=== PATIENT | male | born 1950 | race Caucasian/White ===

== ENCOUNTER 2020-08-09 21:15 | Inpatient (IN) ==
[2020-08-09] MEDS ORDERED: SODIUM CHLORIDE 0.9% 1000ML 1,000 ML IV ONE (21:39)
--- NOTE | 2020-08-09 21:44 | Emergency Department Note ---
Impression & Plan Acute GI bleeding, Melena, Elevated BUN, Anemia ED Provider Note NAME: CORTES CHRISTOPHER AGE: 69 SEX: M : 1950 ARRIVES VIA: Walk-In INFORMANT: Patient ED PROVIDER(S): Ba Aguirre DO CHIEF COMPLAINT: Dark tarry stool HPI: Patient is a 69-year-old male who presents the ER for dark tarry stool. He had 3 bowel movements over the past 3 hours which he notes are dark and tarry. Last one had dark blood as well as bright red blood. He denies any belly pain. No blood thinners. No headache or neck pain. No dizziness or lightheadedness. No chest pain or shortness of breath. No other exacerbating or remitting factors. Previous history of a bowel resection and appendectomy. ROS: See above HPI for pertinent positives & negatives. A total of 10 systems reviewed and were otherwise negative. PAST MEDICAL HISTORY:See Below PAST SURGICAL HISTORY:See Below FAMILY HISTORY:See Below SOCIAL HISTORY:See Below HOME MEDICATIONS:See Below ALLERGIES:See Below VITALS:See Below PHYSICAL EXAMINATION: GENERAL: Sitting up in bed, alert, well appearing, well nourished, no distress, non-toxic EYE EXAM: normal conjunctiva. OROPHARYNX: no exudate, no erythema, lips, buccal mucosa, and tongue normal and mucous membranes are moist NECK: supple, no nuchal rigidity, no adenopathy, non-tender LUNGS: Clear to auscultation. Normal chest wall mechanics HEART: no murmurs, S1 normal and S2 normal ABDOMEN: abdomen soft, non-tender, normo-active bowel sounds, no masses, no rebound or guarding. BACK: Back is symmetrical on inspection and there is no deformity, no midline tenderness, no CVA tenderness. RECTAL: Heme positive melanotic stool UPPER EXTREMITIES: upper extremities are grossly normal. LOWER EXTREMITIES: No pitting edema. NEURO EXAM: Normal sensorium, cranial nerves II-XII grossly intact, normal speech, no gross weakness of arms, no gross weakness of legs. MEDICAL DECISION MAKING: Patient is a 69-year-old male who presents the ER for dark tarry stools for the past 3 to 5 hours. He has had 3-4 episodes. Last one had some bright red blood in it as well. Denies any blood thinners. Previous colonoscopy was unremar kable. Rectal with melena. Labs show a mild leukocytosis 11,000. Hemoglobin dropped from 15-12.7. INR unremarkable. BMP with LFTs bilirubin was unremarkable. Troponin was negative. Lipase normal. Patient was typed and screened. He has absolutely no abdominal pain. He was updated bedside. Discussed with the hospitalist for further evaluation. Triage Nursing notes reviewed. Prior medical records reviewed Vital Signs: reviewed and remarkable for tachycardic and hypertensive Differential diagnosis: Differential diagnosis includes etiologies such as diverticulitis, diverticulosis, AVM, coagulopathy, colitis, inflammatory bowel disease, malignancy, Mariam-Decker tear, esophagitis, peptic ulcer disease, variceal bleed, gastritis, epistaxis, fissure, hemorrhoids, as well as others were entertained. ER treatment provided: See below Diagnostics interpreted by me: ECG: Sinus rhythm rate 88 Left axis Right bundle branch block T WI V1 through V3 No PVCs Cardiac Monitoring: An order was placed for continuous cardiac monitoring. The monitor shows a rate of 89 with sinus rhythm. Laboratory studies: As stated above and show below. Imaging studies: See below Consultation(s): Discussed with Dr. Giovanni Pedro ED COURSE: Procedures: none Critical Care: None Past Med/Surg History Medical History (Updated 08/10/20 @ 00:22 by Ba Aguirre DO) Hyperlipidemia Hypertension Social History Smoking Status: Former smoker Tobacco Type: Cigarettes Preferred Language: Hungarian Feels Safe at Home: Yes Allergies Allergies Allergy/AdvReac Type Severity Reaction Status Date / Time amoxicillin AdvReac Severe blisters Unverified 08/09/20 22:49 Home Meds Home Medications Medication Instructions Recorded Confirmed atorvastatin 20 mg PO QAM 04/18/20 08/09/20 cetirizine [Zyrtec] 10 mg PO QAM PRN 04/18/20 08/09/20 metoprolol succinate 25 mg PO QAM 04/18/20 08/09/20 Results & Data (ED) Vital Signs Vital Signs - 24 hr 08/09/20 21:17 08/09/20 22:22 08/09/20 22:30 Temperature 36.7 C Temperature Source Oral Pulse Rate - Lying Pulse Rate - Sitting Pulse Rate - Standing Pulse Rate 106 H 91 H 94 H Pulse Rate from SpO2 Sensor 93 H Pulse Rhythm Regular Pulse Strength Normal Respiratory Rate 18 14 16 Respiratory Effort / Characteristics Non-Labored Spontaneous Respiratory Depth Normal Respiratory Pattern Regular Blood Pressure - Lying Blood Pressure - Sitting Blood Pressure- Standing Blood Pressure 177/96 H 148/78 H Blood Pressure Mean 123 90 Blood Pressure Position Sitting Pulse Oximetry 98 97 98 Oxygen Delivery Method Room Air Room Air Room Air Sepsis Recent Fever Within 48 Hours No Sepsis New/Unexplained Change in Mental Status N/A Sepsis Action Taken by Nursing No Action Required 08/09/20 23:00 08/09/20 23:27 08/09/20 23:30 Temperature Temperature Source Pulse Rate - Lying 92 H Pulse Rate - Sitting 90 Pulse Rate - Standing 98 H Pulse Rate 80 81 Pulse Rate from SpO2 Sensor 80 Pulse Rhythm Pulse Strength Respiratory Rate 13 18 Respiratory Effort / Characteristics Respiratory Depth Respiratory Pattern Blood Pressure - Lying 163/84 H Blood Pressure - Sitting 171/86 H Blood Pressure- Standing 148/85 H Blood Pressure 149/83 H 148/85 H Blood Pressure Mean 108 108 Blood Pressure Position Pulse Oximetry 96 97 Oxygen Delivery Method Room Air Room Air Sepsis Recent Fever Within 48 Hours Sepsis New/Unexplained Change in Mental Status Sepsis Action Taken by Nursing 08/10/20 00:00 Temperature Temperature Source Pulse Rate - Lying Pulse Rate - Sitting Pulse Rate - Standing Pulse Rate 86 Pulse Rate from SpO2 Sensor 87 Pulse Rhythm Pulse Strength Respiratory Rate 15 Respiratory Effort / Characteristics Respiratory Depth Respiratory Pattern Blood Pressure - Lying Blood Pressure - Sitting Blood Pressure- Standing Blood Pressure 141/75 H Blood Pressure Mean 85 Blood Pressure Position Pulse Oximetry 96 Oxygen Delivery Method Room Air Sepsis Recent Fever Within 48 Hours Sepsis New/Unexplained Change in Mental Status Sepsis Action Taken by Nursing Laboratory Data Result diagrams: 08/09/20 22:01 08/09/20 22:01 Lab Results 08/09/20 08/09/20 08/09/20 Range/Units 22:01 22:01 22:01 WBC 11.54 H (4.8-10.8) K/uL RBC 3.97 L (4.7-6.1) M/uL Hgb 12.7 L (14.0-18.0) g/dL Hct 38.0 L (42-52) % MCV 95.7 (80-100) fL MCH 32.0 (25-34) pg MCHC 33.4 (32-36) g/dL RDW Std Deviation 44.0 (36.4-46.3) fL RDW Coeff of Melvin 12.7 (11.5-14.5) % Plt Count 196 (130-400) K/uL MPV 9.4 (7.4-10.4) fL Immature Gran % (Auto) 0.3 % Neut % (Auto) 74.6 % Lymph % (Auto) 16.0 % [place] % (Auto) 8.0 % Eos % (Auto) 0.8 % Baso % (Auto) 0.3 % Neut # (Auto) 8.62 H (1.4-6.5) K/uL Lymph # (Auto) 1.85 (1.2-3.4) K/uL [place] # (Auto) 0.92 H (0.11-0.59) K/uL Eos # (Auto) 0.09 (0-0.5) K/uL Baso # (Auto) 0.03 (0-0.2) K/uL Immature Gran # (Auto) 0.03 H (0.00-0.02) K/uL PT 10.8 (9.0-12.0) Seconds INR 1.0 (0.9-1.1) APTT 25.1 (21.0-31.0) Seconds PTT Ratio 0.9 Sodium (136-145) mmol/L Potassium (3.5-5.1) mmol/L Chloride (98-107) mmol/L Carbon Dioxide (21-32) mmol/L Anion Gap (3-11) BUN (7-18) mg/dl Creatinine (0.6-1.4) mg/dl Est Cr Clr Drug Dosing ml/min Est GFR ( Amer) Est GFR (Non-Af Amer) BUN/Creatinine Ratio (10-20) Glucose (70-99) mg/dl Calcium (8.5-10.1) mg/dl Magnesium (1.8-2.4) mg/dl Total Bilirubin (0.2-1) mg/dl AST (15-37) U/L ALT (12-78) U/L Alkaline Phosphatase (45-117) U/L Troponin I (0-0.045) ng/ml Total Protein (6.4-8.2) gm/dl Albumin (3.4-5.0) gm/dl Globulin (2.5-4.0) gm/dl Albumin/Globulin Ratio (0.9-2) Lipase (73-393) U/L Blood Type O Positive Antibody Screen NEGATIVE 08/09/20 Range/Units 22:01 WBC (4.8-10.8) K/uL RBC (4.7-6.1) M/uL Hgb (14.0-18.0) g/dL Hct (42-52) % MCV (80-100) fL MCH (25-34) pg MCHC (32-36) g/dL RDW Std Deviation (36.4-46.3) fL RDW Coeff of Melvin (11.5-14.5) % Plt Count (130-400) K/uL MPV (7.4-10.4) fL Immature Gran % (Auto) % Neut % (Auto) % Lymph % (Auto) % [place] % (Auto) % Eos % (Auto) % Baso % (Auto) % Neut # (Auto) (1.4-6.5) K/uL Lymph # (Auto) (1.2-3.4) K/uL [place] # (Auto) (0.11-0.59) K/uL Eos # (Auto) (0-0.5) K/uL Baso # (Auto) (0-0.2) K/uL Immature Gran # (Auto) (0.00-0.02) K/uL PT (9.0-12.0) Seconds INR (0.9-1.1) APTT (21.0-31.0) Seconds PTT Ratio Sodium 136 (136-145) mmol/L Potassium 4.6 (3.5-5.1) mmol/L Chloride 102 (98-107) mmol/L Carbon Dioxide 29 (21-32) mmol/L Anion Gap 6.0 (3-11) BUN 26 H (7-18) mg/dl Creatinine 0.89 (0.6-1.4) mg/dl Est Cr Clr Drug Dosing 77.2 ml/min Est GFR ( Amer) 100.4 Est GFR (Non-Af Amer) 86.6 BUN/Creatinine Ratio 29.0 H (10-20) Glucose 114 H (70-99) mg/dl Calcium 8.3 L (8.5-10.1) mg/dl Magnesium 1.9 (1.8-2.4) mg/dl Total Bilirubin 0.6 (0.2-1) mg/dl AST 22 (15-37) U/L ALT 24 (12-78) U/L Alkaline Phosphatase 71 (45-117) U/L Troponin I < 0.015 (0-0.045) ng/ml Total Protein 6.3 L (6.4-8.2) gm/dl Albumin 3.4 (3.4-5.0) gm/dl Globulin 2.9 (2.5-4.0) gm/dl Albumin/Globulin Ratio 1.2 (0.9-2) Lipase 139 (73-393) U/L Blood Type Antibody Screen Administered Medications Pantoprazole Sodium 40 mg/ (Dextrose) 100 mls @ 20 mls/hr IV Q5H ANALISA Stop: 09/08/20 23:14 Last Admin: 08/09/20 23:40 Dose: 8 mg/hr, 20 mls/hr Documented by: [id number] Multivitamins 10 ml/ Thiamine HCl 100 mg/ Folic Acid 1 mg/Sodium Chloride 1,011.2 mls @ 60 mls/hr IV .[id number] ONE Stop: 08/10/20 16:24 Last Admin: 08/10/20 00:07 Dose: 60 mls/hr Documented by: [id number] Discontinued Medications Sodium Chloride (Nss 1000ml) 1,000 mls @ 999 mls/hr IV .[id number] ONE Stop: 08/09/20 22:39 Last Infusion: 08/09/20 23:24 Dose: 0 mls/hr Documented by: [id number] Admin: 08/09/20 22:28 Dose: 999 mls/hr Documented by: [id number] Pantoprazole Sodium 80 mg/ (Dextrose) 120 mls @ 400 mls/hr IV NOW ONE Stop: 08/09/20 23:17 Last Infusion: 08/09/20 23:40 Dose: 0 mls/hr Documented by: [id number] Admin: 08/09/20 23:23 Dose: 400 mls/hr Documented by: [id number] Calcium Gluconate 1,000 mg/ (Sodium Chloride) 60 mls @ 240 mls/hr IV NOW STA Stop: 08/09/20 23:11 Last Infusion: 08/09/20 23:40 Dose: 0 mls/hr Documented by: [id number] Admin: 08/09/20 23:23 Dose: 240 mls/hr Documented by: [id number] Lorazepam (Ativan) 0.25 mg in 0.5 mls @ 0.5 mls/min IV NOW STA Stop: 08/09/20 23:33 Last Admin: 08/09/20 23:43 Dose: 0.5 mls/min Documented by: [id number] Discharge Plan Visit Data Chief Complaint: Rectal Bleed Stated Complaint: BLOOD IN STOOL ED Provider: Ba Aguirre Discharge Problem: Acute GI bleeding, Melena, Elevated BUN, Anemia Discharge Instructions Interventions: ED Discharge Assessment Last Done: 08/10/20 00:16 Forms Stand Alone Forms: [employer] Prescriptions Prescriptions: No Action atorvastatin 20 mg tablet 20 mg PO QAM RF: 0 cetirizine [Zyrtec] 10 mg Tablet 10 mg PO QAM PRN (Reason: allergies) RF: 0 metoprolol succinate 25 mg tablet extended release 24 hr 25 mg PO QAM RF: 0 Referrals Referrals: Yariel Rivera M.D. [Primary Care Provider] - Discharge Problem: Anemia Qualifiers: Anemia type: unspecified type Qualified Code(s): D64.9 - Anemia, unspecified
[2020-08-09 22:09] LABS: Basophils # (auto) 0.03 K/uL (0-0.2); Basophils % (auto) 0.3 %; Eosinophils # (auto) 0.09 K/uL (0-0.5); Eosinophils % (auto) 0.8 %; Hemoglobin 12.7 g/dL (14.0-18.0); Immature Granulocytes # (auto) 0.03 K/uL (0.00-0.02); Immature Granulocytes % (auto) 0.3 %; Lymphocytes # (auto) 1.85 K/uL (1.2-3.4); Mean Corpuscular Hgb Conc 33.4 g/dL (32-36); Mean Corpuscular Volume 95.7 fL (80-100); Mean Platelet Volume 9.4 fL (7.4-10.4); Monocytes # (auto) 0.92 K/uL (0.11-0.59); Neutrophils # (auto) 8.62 K/uL (1.4-6.5); Neutrophils % (auto) 74.6 %; Platelet Count 196 K/uL (130-400); RDW Coefficient of Variation 12.7 % (11.5-14.5); Red Blood Count 3.97 M/uL (4.7-6.1); White Blood Count 11.54 K/uL (4.8-10.8)
[2020-08-09 22:22] LABS: Partial Thromboplastin Ratio 0.9; Partial Thromboplastin Time 25.1 Seconds (21.0-31.0); Prothrombin Time 10.8 Seconds (9.0-12.0)
[2020-08-09 22:27] LABS: Alanine Aminotransferase 24 U/L (12-78); Albumin Level 3.4 gm/dl (3.4-5.0); Aspartate Aminotransferase 22 U/L (15-37); Blood Urea Nitrogen 26 mg/dl (7-18); Calcium 8.3 mg/dl (8.5-10.1); Carbon Dioxide 29 mmol/L (21-32); Chloride 102 mmol/L (98-107); Creatinine Clr Calc Pharmacy 77.2 ml/min; Est GFR (African American) 100.4; Est GFR (Non-African American) 86.6; Glucose 114 mg/dl (70-99); Lipase 139 U/L (73-393); Potassium 4.6 mmol/L (3.5-5.1); Sodium 136 mmol/L (136-145)
[2020-08-09 22:31] LABS: Albumin Globulin Ratio 1.2 (0.9-2); Alkaline Phosphatase 71 U/L (45-117); Bilirubin,Total 0.6 mg/dl (0.2-1); Globulin 2.9 gm/dl (2.5-4.0); Total Protein 6.3 gm/dl (6.4-8.2); Troponin I < 0.015 ng/ml (0-0.045)
[2020-08-09] MEDS ORDERED: PANTOPRAZOLE BOLUS/DRIP 1 EA IV STA (22:53)
[2020-08-09] MEDS ORDERED: CALCIUM GLUCONATE 10% 1,000 MG in SODIUM CHLORIDE 0.9% 50 ML IV STA (22:57)
[2020-08-09] MEDS ORDERED: PANTOprazole 80 MG in DEXTROSE 5% 100 ML IV ONE (23:00)
[2020-08-09 23:06] LABS: Magnesium 1.9 mg/dl (1.8-2.4)
[2020-08-09] MEDS ORDERED: LORazepam 0.25 MG/0.5 ML VIAL IV STA (23:32)
[2020-08-09] MEDS ORDERED: MULTI-VITAMIN INFUSION 10 ML, THIAMINE HCL 100 MG, FOLIC ACID 1 MG in SODIUM CHLORIDE 0... IV ONE (23:33)
--- NOTE | 2020-08-09 23:35 | History & Physical Report ---
Date of Service August 09, 2020 Assessment & Plan (1) UGIB (upper gastrointestinal bleed): Some degree of hemodynamic instability with positive orthostatic vitals at the ER. ? Alcoholic gastritis (hx at risk alcohol consumption, possible alcohol abuse) hypertension, BP slightly elevated hyperlipidemia on statin Rx Hyperglycemia rule out DM past tobacco abuse Medical telemetry IV PPI GI consult RE U GIB Serial H&H, transfuse PRBC if hemoglobin less than 7 and or for symptomatic anemia AWSS/DT precautions Check hemoglobin A1c DVT prophylaxis. SCDs RE GI bleed Full code Text document was generated using [employer] voice recognition software. It may contain grammatical or spelling errors. Kindly contact undersigned for clarification of any documentation item in question. History of Present Illness Chief Complaint: Dark tarry stools Primary Care Provider: Yariel Rivera History obtained from patient, family, and records. Medical history significant for hypertension, hyperlipidemia, anxiety/mood disorder, past tobacco abuse, daily alcohol intake. One day history of diarrhea, dark tarry stools with with some bright red blood. Minimal achy right-sided abdominal pain without emesis. No fever, no chills. No recent NSAID intake. No unusual weight loss. No fever, no chills. Antibiotic/steroid course for ear infection a few months back. Almost daily alcohol intake (3-6 drinks, some days none as per patient account), patient denies abuse. No prior history of alcohol withdrawal. History of dark stools many decades ago related to swallowed blood from the throat as per patient account. Patient brought to ER by . 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 Allergies Allergy/AdvReac Type Severity Reaction Status Date / Time amoxicillin AdvReac Severe blisters Unverified 08/09/20 22:49 Home Medications Home Medications Medication Instructions Recorded Confirmed Type atorvastatin 20 mg PO QAM 04/18/20 08/09/20 History cetirizine [Zyrtec] 10 mg PO QAM PRN 04/18/20 08/09/20 History metoprolol succinate 25 mg PO QAM 04/18/20 08/09/20 History Past Med/Surg History Medical History (Updated 08/10/20 @ 08:42 by Aron Cuello DO) Hyperlipidemia Hypertension Social History Smoking Status: Former smoker Tobacco Type: Cigarettes Do You Dip or Chew Tobacco: No; Hx Alcohol Use: Yes Alcohol type: beer Hx Substance Use: No Preferred Language: Sami Beliefs That Will Affect Care: None Current Living Situation: Spouse Other Information That Helps Us Care for You: No Feels Safe at Home: Yes Safety Concerns: Feels Safe At This Time Assistive Devices: Glasses Review of Systems Review of Systems: As per HPI, all 10 systems reviewed, all other ROS negative Physical Exam Physical Exam: GENERAL: Comfortable, slightly anxious, pleasant, obese, tremulous, no respiratory distress SKIN: Pallor, warm HEENT: Pale palpebral conjunctivae, no ptosis, dry buccal mucosa NECK : Supple, short neck, no tenderness CHEST : CTA, no tenderness HEART : RRR, no obvious murmurs ABDOMEN: Some distention, no overt tenderness EXTREMITIES : No LE swelling/tenderness, no other conspicuous deformities noted NEUROLOGIC : Coherent, no facial asymmetry, tremulous, no other gross focality Results & Data Results & Data ([facility]) Vital Signs (Past 12 Hours) Vital Signs Temp Pulse Resp BP Pulse Ox 08/09/20 23:00 80 13 149/83 H 96 08/09/20 22:30 94 H 16 148/78 H 98 08/09/20 22:22 91 H 14 97 08/09/20 21:17 36.7 C 106 H 18 177/96 H 98 Laboratory Results Laboratory Results WBC 11.54 K/uL (4.8-10.8) H 08/09/20 22:01 RBC 3.97 M/uL (4.7-6.1) L 08/09/20 22:01 Hgb 12.7 g/dL (14.0-18.0) L 08/09/20 22:01 Hct 38.0 % (42-52) L 08/09/20 22:01 MCV 95.7 fL (80-100) 08/09/20 22:01 MCH 32.0 pg (25-34) 08/09/20 22:01 MCHC 33.4 g/dL (32-36) 08/09/20 22:01 RDW Std Deviation 44.0 fL (36.4-46.3) 08/09/20 22:01 RDW Coeff of Melvin 12.7 % (11.5-14.5) 08/09/20 22: Plt Count 196 K/uL (130-400) 08/09/20 22: MPV 9.4 fL (7.4-10.4) 08/09/20 22: Immature Gran % (Auto) 0.3 % 08/09/20 22: Neut % (Auto) 74.6 % 08/09/20 22: Lymph % (Auto) 16.0 % 08/09/20 22: [place] % (Auto) 8.0 % 08/09/20 22: Eos % (Auto) 0.8 % 08/09/20 22: Baso % (Auto) 0.3 % 08/09/20: Neut # (Auto) 8.62 K/uL (1.4-6.5) H 08/09/20 22: Lymph # (Auto) 1.85 K/uL (1.2-3.4) 08/09/20 22: [place] # (Auto) 0.92 K/uL (0.11-0.59) H 08/09/20 22:01 Eos # (Auto) 0.09 K/uL (0-0.5) 08/09/20 22: Baso # (Auto) 0.03 K/uL (0-0.2) 08/09/20 22: Immature Gran # (Auto) 0.03 K/uL (0.00-0.02) H 08/09/20 22: PT 10.8 Seconds (9.0-12.0) 08/09/20 22: INR 1.0 (0.9-1.1) 08/09/20 22: APTT 25.1 Seconds (21.0-31.0) 08/09/20 22: PTT Ratio 0.9 08/09/20 22: Sodium 136 mmol/L (136-145) 08/09/20 22: Potassium 4.6 mmol/L (3.5-5.1) 08/09/20 22: Chloride 102 mmol/L (98-107) 08/09/20 22: Carbon Dioxide 29 mmol/L (21-32) 08/09/20 22: Anion Gap 6.0 (3-11) 08/09/20 22: BUN 26 mg/dl (7-18) H 08/09/20 22: Creatinine 0.89 mg/dl (0.6-1.4) 08/09/20 22: Est Cr Clr Drug Dosing 77.2 ml/min 08/09/20 22: Est GFR ( Amer) 100.4 08/09/20 22: Est GFR (Non-Af Amer) 86.6 08/09/20 22: BUN/Creatinine Ratio 29.0 (10-20) H 08/09/20 22: Glucose 114 mg/dl (70-99) H 08/09/20 22: Calcium 8.3 mg/dl (8.5-10.1) L 08/09/20 22: Magnesium 1.9 mg/dl (1.8-2.4) 08/09/20 22: Total Bilirubin 0.6 mg/dl (0.2-1) 08/09/20 22: AST 22 U/L (15-37) 08/09/20 22: ALT 24 U/L (12-78) 08/09/20 22: Alkaline Phosphatase 71 U/L (45-117) 08/09/20 22: Troponin I < 0.015 ng/ml (0-0.045) 08/09/20 22: Total Protein 6.3 gm/dl (6.4-8.2) L 08/09/20 22: Albumin 3.4 gm/dl (3.4-5.0) 08/09/20 22: Globulin 2.9 gm/dl (2.5-4.0) 08/09/20 22: Albumin/Globulin Ratio 1.2 (0.9-2) 08/09/20 22: Lipase 139 U/L (73-393) 08/09/20 22: Diagnostic Findings CT abdomen pelvis initial read: Nonspecific colitis EKG as per my interpretation : Rate 90, NSR, normal axis, right bundle branch block
[2020-08-09] MEDS: PANTOprazole 40 MG in DEXTROSE 5% 100 ML IV SCH (23:40)
[2020-08-10] MEDS ORDERED: oxyCODONE HCL IR 5 MG TAB (IMMEDIATE RELEASE) PO PRN (01:01)
[2020-08-10] MEDS ORDERED: LORazepam 3 MG/6 ML VIAL IV PRN (01:01)
[2020-08-10] MEDS ORDERED: GABAPENTIN 600 MG TAB PO ONE (01:01)
[2020-08-10] MEDS ORDERED: MoRPHine SULFATE 2 MG/ML CARP IV PRN (01:01)
[2020-08-10] MEDS ORDERED: LORazepam 2 MG/4 ML VIAL IV PRN (01:01)
[2020-08-10] MEDS ORDERED: PROMETHAZINE HCL 12.5 MG in SODIUM CHLORIDE 0.9% 50 ML IV PRN (01:01)
[2020-08-10] MEDS ORDERED: ACETAMINOPHEN 325 MG TAB PO PRN (01:01)
[2020-08-10] MEDS ORDERED: ATIVAN IV ALCOHOL WITHDRAWL IV PRN (01:01)
[2020-08-10] MEDS ORDERED: CETIRIZINE HCL 10 MG TABLET PO PRN (01:01)
[2020-08-10] MEDS ORDERED: GABAPENTIN 1200MG ALCOHOL WITHDRAWAL LOAD PO STA (01:01)
[2020-08-10] MEDS ORDERED: LORazepam 1 MG/2 ML VIAL IV PRN (01:01)
[2020-08-10] MEDS ORDERED: METOPROLOL SUCC 25MG EXT REL TAB PO SCH ×2 (01:30→09:00)
[2020-08-10 02:03] LABS: Basophils # (auto) 0.02 K/uL (0-0.2); Basophils % (auto) 0.2 %; Eosinophils # (auto) 0.03 K/uL (0-0.5); Eosinophils % (auto) 0.3 %; Hematocrit (blood only) 32.2 % (42-52); Immature Granulocytes # (auto) 0.03 K/uL (0.00-0.02); Immature Granulocytes % (auto) 0.3 %; Lymphocytes # (auto) 1.74 K/uL (1.2-3.4); Lymphocytes % (auto) 15.2 %; Mean Corpuscular Hemoglobin 32.5 pg (25-34); Mean Corpuscular Hgb Conc 34.2 g/dL (32-36); Mean Corpuscular Volume 95.3 fL (80-100); Mean Platelet Volume 9.4 fL (7.4-10.4); Monocytes # (auto) 0.94 K/uL (0.11-0.59); Monocytes % (auto) 8.2 %; Neutrophils # (auto) 8.71 K/uL (1.4-6.5); Neutrophils % (auto) 75.8 %; Platelet Count 180 K/uL (130-400); RDW Coefficient of Variation 12.7 % (11.5-14.5); RDW Standard Deviation 43.8 fL (36.4-46.3); Red Blood Count 3.38 M/uL (4.7-6.1); White Blood Count 11.47 K/uL (4.8-10.8)
[2020-08-10 02:21] LABS: BUN Creatinine Ratio 32.1 (10-20); Calcium 7.8 mg/dl (8.5-10.1); Creatinine Clr Calc Pharmacy 94.3 ml/min; Est GFR (African American) 101.8; Est GFR (Non-African American) 87.9; Potassium 4.3 mmol/L (3.5-5.1)
[2020-08-10 02:59] LABS: Appearance Urine Clear (Clear); Bacteria Urine Automated Negative (Negative); Bilirubin Urine Negative (Negative); Blood Urine Negative (Negative); Color Urine Yellow; Epithelial Cell Urine Auto >30 /lpf (0-5); Glucose Urine UA Negative (Negative); Ketones Urine Negative (Negative); Leukocyte Esterase Urine Negative (Negative); Nitrite Urine Negative (Negative); RBC Urine Automated 0-4 /hpf (0-4); Urobilinogen Urine Negative (Negative); pH Urine 7.5 (4.5-7.5)
[2020-08-10 03:19] LABS: Protein Urine 1+ (Negative); Sulfosalicylic Acid Urine Positive (Negative)
[2020-08-10 03:20] LABS: Mucus Urine Present (None Prsent)
[2020-08-10] MEDS: SODIUM CHLORIDE 0.9% 1000ML 1,000 ML IV SCH ×2 (03:59→15:17)
[2020-08-10] MEDS: PANTOprazole 40 MG in DEXTROSE 5% 100 ML IV SCH ×4 (04:18→20:09)
[2020-08-10 06:01] LABS: Estimated Average Glucose 100 mg/dl; Hemoglobin A1C 5.1 % (4.5-5.6)
--- NOTE | 2020-08-10 07:41 | CT Scan Report ---
CT abd pelvis IV con only CLINICAL HISTORY: Right-sided abdominal pain COMPARISON STUDY: None. TECHNIQUE: The patient was scanned in a dynamic helical fashion during intravenous administration of 93 cc of Optiray 320 A dose lowering technique was utilized adhering to the principles of ALARA. CT DOSE: 913.20 mGycm FINDINGS: Lower chest: The heart is normal in size and configuration, without pericardial effusion. The lung ba ses and pleural spaces are clear. Liver: The contrast-enhanced liver is normal in size, contour, and attenuation. There is no intrahepa tic biliary ductal dilatation. The hepatic veins and portal veins are patent. Gallbladder: Unremarkable. Spleen: Normal in size and attenuation. Pancreas: Unremarkable. Adrenal glands: Unremarkable. Kidneys: There are nonobstructing lower pole left renal calculi measuring up to 6 mm in diameter. The re are bilateral renal hypodensities consistent with cortical cysts. There is no hydronephrosis. Bowel: There are no transition zones indicate bowel obstruction. There are scattered colonic air-flui d levels. By history the appendix is surgically absent. There is no evidence of acute diverticulitis. There is borderline gastric wall thickening, a finding which may be secondary to a nondistended stat e. Peritoneum: There is no intraperitoneal free air or abdominal ascites. Vasculature: The abdominal aorta is normal in course and caliber. Adenopathy: None. Pelvic viscera: There is mild bladder distention. There are a few tiny diverticula arising from the b ladder dome. Skeletal structures: No destructive osseous lesions are seen. IMPRESSION: 1. No evidence of bowel obstruction. No evidence of free air 2. Left-sided nephrolithiasis. No evidence of hydronephrosis 3. Mild bladder distention. Tiny diverticula arising from the bladder dome 4. Colonic fluid. This is a nonspecific finding which can be seen in diarrhea/enteritis. 5. Borderline gastric wall thickening, finding which may be secondary to a nondistended state ACT 112: Negative or not required by law. Electronically signed by: Mulugeta Velez M.D. 08/10/2020 7:40 AM
[2020-08-10 08:13] LABS: Hemoglobin 10.7 g/dL (14.0-18.0); Reticulocyte % 2.8 % (0.5-2.0); Reticulocytes # 0.09 10^6/uL (0.02-0.10)
[2020-08-10] MEDS: GABAPENTIN 600 MG TAB PO SCH ×3 (08:39→21:06)
[2020-08-10] MEDS: ATORVASTATIN 20 MG TAB PO SCH (08:39)
[2020-08-10] MEDS: METOPROLOL SUCC 25MG EXT REL TAB PO SCH (08:40)
--- NOTE | 2020-08-10 08:42 | Anesthesiology Consultation ---
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 Surgery Operation Date: 08/10/20 08:25 Proposed Procedures p Esophagogastroduodenoscopy - Kiko Ibrahim DO Height/Weight Height: 5 ft 9 in Weight: 102.5 kg Allergies Allergy/AdvReac Type Severity Reaction Status Date / Time amoxicillin AdvReac Severe blisters Unverified 08/09/20 22:49 Medications Home Medications Medication Instructions Recorded Confirmed Last Taken atorvastatin 20 mg PO QAM 04/18/20 08/09/20 08/09/20 09:00 cetirizine [Zyrtec] 10 mg PO QAM PRN 04/18/20 08/09/20 04/17/20 metoprolol succinate 25 mg PO QAM 04/18/20 08/09/20 08/09/20 09:00 Active Medications Generic Name Dose Route Start Last Admin Trade Name Freq PRN Reason Stop Dose Admin Atorvastatin Calcium 20 mg 08/10/20 09:00 08/10/20 08:39 Atorvastatin 20 Mg Tab PO 09/09/20 08:59 20 mg QAM ANALISA Administration Gabapentin 600 mg 08/10/20 08:00 08/10/20 08:39 Gabapentin 600 Mg Tab PO 08/10/20 14:01 600 mg Q6H ANALISA Administration Pantoprazole Sodium 40 mg/ 100 mls @ 20 mls/hr 08/09/20 23:15 08/10/20 08:37 Dextrose IV 09/08/20 23:14 8 mg/hr Q5H ANALISA 20 mls/hr Administration 8 MG/HR Sodium Chloride 1,000 mls @ 60 mls/hr 08/10/20 03:00 08/10/20 03:59 Nss 1000ml IV 09/09/20 02:59 60 mls/hr .[id number] ANALISA Administration Metoprolol Succinate 25 mg 08/10/20 09:00 08/10/20 08:40 Metoprolol Succ 25mg Ext Rel Tab PO 09/09/20 08:59 25 mg QAM ANALISA Administration Past Medical History Medical History (Updated 08/10/20 @ 08:42 by Aron Cuello DO) Hyperlipidemia Hypertension Social History Smoking Status: Former smoker tobacco type: cigarettes Do You Dip or Chew Tobacco: No Hx Alcohol Use: Yes Alcohol type: beer alcohol intake frequency: a few times a week Hx Substance Use: No substance use type: does not use Physical Exam Vital Signs Last Vital Signs Temp 97.7 F 08/10/20 08:01 Pulse 85 08/10/20 08:01 Resp 18 08/10/20 08:01 BP 142/86 H 08/10/20 08:01 Pulse Ox 97 08/10/20 08:01 Testing Laboratory Results 08/10/20 08:02 08/10/20 01:53 PT 10.8 Seconds (9.0-12.0) 08/09/20 22:01 INR 1.0 (0.9-1.1) 08/09/20 22:01 APTT 25.1 Seconds (21.0-31.0) 08/09/20 22:01 Hemoglobin A1c 5.1 % (4.5-5.6) 08/09/20 22:01 Urine Color Yellow 08/10/20 02:35 Urine Appearance Clear (Clear) 08/10/20 02:35 Urine pH 7.5 (4.5-7.5) 08/10/20 02:35 Ur Specific [place] 1.020 (1.000-1.030) 08/10/20 02:35 Urine Protein 1+ (Negative) H 08/10/20 02:35 Urine Glucose (UA) Negative (Negative) 08/10/20 02:35 Urine Ketones Negative (Negative) 08/10/20 02:35 Urine Nitrite Negative (Negative) 08/10/20 02:35 Ur Leukocyte Esterase Negative (Negative) 08/10/20 02:35 Urine WBC (Auto) 1-5 /hpf (0-5) 08/10/20 02:35 Urine RBC (Auto) 0-4 /hpf (0-4) 08/10/20 02:35 U Hyaline Cast (Auto) 5-10 /lpf (0-5) H 08/10/20 02:35 U Epithel Cells (Auto) >30 /lpf (0-5) H 08/10/20 02:35 Urine Bacteria (Auto) Negative (Negative) 08/10/20 02:35 Blood Type O Positive 08/09/20 22:01 Antibody Screen NEGATIVE 08/09/20 22:01 Electrocardiogram Date: 08/09/20 Normal sinus rhythm, rate 88 bpm RSR' or QR pattern in V1 suggests right ventricular conduction delay T wave abnormality, consider anterior ischemia Abnormal ECG When compared with ECG of 18-APR-2020 11:42, RSR' pattern in V1 is now Present
[2020-08-10 08:48] LABS: Ferritin 156.4 ng/ml (8-388)
--- NOTE | 2020-08-10 09:38 | Electrocardiogram Report ---
Test Reason : Blood Pressure : / mmHG Vent. Rate : 088 BPM Atrial Rate : 088 BPM P-R Int : 154 ms QRS Dur : 124 ms QT Int : 396 ms P-R-T Axes : 022 003 044 degrees QTc Int : 479 ms Poor data quality, interpretation may be adversely affected Normal sinus rhythm Right bundle branch block Abnormal ECG When compared with ECG of 18-APR-2020 11:42, Right bundle branch block is new Confirmed by Agustin Curry ([id number]) on 08/10/2020 9:38:21 AM Referred By: REFERRED SELF Confirmed By:Agustin Curry
--- NOTE | 2020-08-10 09:38 | Hospitalist Progress Note ---
Date of Service August 10, 2020 Assessment & Plan (1) UGIB (upper gastrointestinal bleed): UGIB 2/2 gastric ulcer, severe gastritis Some degree of hemodynamic instability with positive orthostatic vitals at the ER. ? Alcoholic gastritis (hx at risk alcohol consumption, possible alcohol abuse, pt denies use of NSAIDs) Medical telemetry IV PPI, cont. for 72 hrs total then PO PPI GI consult RE U GIB Now pt is s/p EGD (08/10) w/ Dr. Ibrahim Findings: Severe gastritis 1 ulcer along the greater curvature of the gastric body, visible vessel seen- This was treated with epinephrine injection and thermal therapy Recommendations Clear liquid diet Continue Protonix drip for another 48 hours (72 hours total) Upon discharge would recommend Protonix or equivalent at 40 mg twice daily for 6 weeks then 1 time daily thereafter repeat upper endoscopy in 3 months Patient should avoid use of nonsteroidals Serial H&H, transfuse PRBC if hemoglobin less than 7 and or for symptomatic anemia AWSS/DT precautions hypertension, BP slightly elevated hyperlipidemia on statin Rx Hyperglycemia rule out DM, check a1c past tobacco abuse DVT prophylaxis. SCDs RE GI bleed Full code Admission and Anticipated Discharge Date Admission Date: August 09, 2020 Subjective Pt is laying in bed, after his procedure with GI, He is drowsy but easily arousable and pt answers questions appropriately. Denies fever, chills, chest pain, shortness of breath. Denies abd. pain Review of Systems Review of Systems: All systems reviewed & are unremarkable except as noted in HPI & below Constitutional: no fever and no chills Respiratory: no cough and no dyspnea Cardiovascular: no chest pain and no palpitations Gastrointestinal: no abdominal pain, no nausea and no vomiting Physical Exam Physical Exam: GENERAL: Elderly obese male laying in bed, in no distress HEENT: NC/AT, EOMI, pale palpebral conjunctivae, no ptosis NECK : Supple, short neck, no tenderness CHEST : CTAB, no tenderness HEART : RRR, no obvious murmurs ABDOMEN: Some distention, no overt tenderness, soft, obese SKIN: warm, dry EXTREMITIES : No LE swelling/tenderness, moves extremities spontaneously NEUROLOGIC : Drowsy from anesthesia, however easily arousable, patient is alert and oriented x3, no facial asymmetry Results & Data Results & Data ([facility]) Vital Signs (Past 12 Hours) Vital Signs Temp Pulse Pulse Resp BP BP Pulse Ox 08/10/20 08:01 36.5 C 85 18 142/86 H 97 08/10/20 07:16 83 08/10/20 03:58 36.6 C 81 18 103/64 98 08/10/20 02:50 96 H 08/10/20 02:01 107/63 08/10/20 01:02 37.0 C 102 H 18 116/67 95 08/10/20 00:00 86 15 141/75 H 96 08/09/20 23:30 81 18 148/85 H 97 08/09/20 23:00 80 13 149/83 H 96 08/09/20 22:30 94 H 16 148/78 H 98 08/09/20 22:22 91 H 14 97
[2020-08-10 09:51] LABS: Folate (Folic Acid) > 24.00 ng/ml (>5.38); Vitamin B12 325 pg/ml (211-911)
[2020-08-10] MEDS ORDERED: ATROPINE SULFATE 0.1 MG/ML 10ML SYR IV PRN (11:57)
[2020-08-10] MEDS ORDERED: ePHEDrine sulfate 50 MG/ML AMP IV PRN (11:57)
--- NOTE | 2020-08-10 12:47 | Gastrointestinal Consultation ---
Date of Consultation August 10, 2020 Assessment & Plan (1) UGIB (upper gastrointestinal bleed): Patient presenting with signs and symptoms concerning for upper gastrointestinal bleed. Given the presentation and significant drop in his hemoglobin and hematocrit I think it would be prudent to proceed with urgent upper endoscopy. We have discussed the risks and benefits of the procedure to include bleeding, infection, perforation, aspiration and need for follow-up studies. Recommendations Upper endoscopy today Continue Protonix drip Discontinue use of all nonsteroidals History of Present Illness Reason for Consultation: Melena melena Attending Physician: Freddy Pineda MD History of Present Illness 69-year-old male presents for a history of melena ongoing for over 24 hours. He denies having any hematemesis or coffee-ground emesis. He denies having any epigastric pain nausea vomiting fevers chills or sweats. He does use nonsteroidals at home has never had an upper GI bleed before. His and he do note that they drink 3-5 drinks per day but to have no history of liver disease or peptic ulcer disease. Surgical history includes a prior appendectomy Allergies Allergy/AdvReac Type Severity Reaction Status Date / Time amoxicillin AdvReac Severe blisters Unverified 08/09/20 22:49 Home Medications Home Medications Medication Instructions Recorded Confirmed Type atorvastatin 20 mg PO QAM 04/18/20 08/09/20 History cetirizine [Zyrtec] 10 mg PO QAM PRN 04/18/20 08/09/20 History metoprolol succinate 25 mg PO QAM 04/18/20 08/09/20 History Patient History Medical History (Updated 08/10/20 @ 08:42 by Aron Cuello DO) Hyperlipidemia Hypertension Social History Smoking Status: Former smoker Tobacco Type: Cigarettes Do You Dip or Chew Tobacco: No; Hx Alcohol Use: Yes Alcohol type: beer Hx Substance Use: No Preferred Language: Slovenian Beliefs That Will Affect Care: None Current Living Situation: Spouse Other Information That Helps Us Care for You: No Feels Safe at Home: Yes Safety Concerns: Feels Safe At This Time Assistive Devices: Glasses Review of Systems Constitutional: no sweats and no malaise Eyes: no diplopia Ear, Nose, Mouth, Throat: no ear pain Respiratory: no cough and no change in sputum Cardiovascular: no chest pain and no chest pain with activity Gastrointestinal: + melena Genitourinary: no urinary frequency Musculoskeletal: no radicular pain Neurologic: no falls Psychiatric: no hopelessness Endocrine: no polydipsia Physical Exam Constitutional: well developed and well nourished; not ill appearing Neck: trachea midline, no thyromegaly Respiratory: normal respiratory effort, lungs clear to auscultation Cardiovascular: Rate/Rhythm: regular rate Heart Sounds: + murmur Gastrointestinal (Abdomen): Inspection/Auscultation: abdomen normal to inspection; abdomen not distended and no abdominal edema Skin: no rashes, warm and dry normal turgor Results & Data ([facility]) Vital Signs (Past 12 Hours) Vital Signs Temp Pulse Pulse Resp BP Pulse Ox 08/10/20 11:31 36.7 C 84 20 121/76 98 08/10/20 08:01 36.5 C 85 18 142/86 H 97 08/10/20 07:16 83 08/10/20 03:58 36.6 C 81 18 103/64 98 08/10/20 02:50 96 H 08/10/20 02:01 107/63 08/10/20 01:02 37.0 C 102 H 18 116/67 95 Laboratory Results Laboratory Results - last 24 hr 08/09/20 08/09/20 08/09/20 22:01 22:01 22:01 WBC 11.54 H RBC 3.97 L Hgb 12.7 L Hct 38.0 L MCV 95.7 MCH 32.0 MCHC 33.4 RDW Std Deviation 44.0 RDW Coeff of Melvin 12.7 Plt Count 196 MPV 9.4 Immature Gran % (Auto) 0.3 Neut % (Auto) 74.6 Lymph % (Auto) 16.0 Eaton % (Auto) 8.0 Eos % (Auto) 0.8 Baso % (Auto) 0.3 Reticulocyte % (Auto) Neut # (Auto) 8.62 H Lymph # (Auto) 1.85 Eaton # (Auto) 0.92 H Eos # (Auto) 0.09 Baso # (Auto) 0.03 Reticulocyte # Immature Gran # (Auto) 0.03 H PT 10.8 INR 1.0 APTT 25.1 PTT Ratio 0.9 Sodium Potassium Chloride Carbon Dioxide Anion Gap BUN Creatinine Est Cr Clr Drug Dosing Est GFR ( Amer) Est GFR (Non-Af Amer) BUN/Creatinine Ratio Glucose Estimat Average Glucose Hemoglobin A1c Lactate Calcium Magnesium Iron TIBC Transferrin Ferritin Total Bilirubin AST ALT Alkaline Phosphatase Troponin I Total Protein Albumin Globulin Albumin/Globulin Ratio Lipase Vitamin B12 Folate Urine Color Urine Appearance Urine pH Ur Specific [place] Urine Protein Urine Glucose (UA) Urine Ketones Urine Blood Urine Nitrite Urine Bilirubin Urine Urobilinogen Ur Leukocyte Esterase Urine WBC (Auto) Urine RBC (Auto) U Hyaline Cast (Auto) U Epithel Cells (Auto) Urine Bacteria (Auto) Urine Mucus COVID-19 Eval Order Hepatitis C Ab Screen SARS-CoV-2, RNA, NAAT Blood Type O Positive Antibody Screen NEGATIVE 08/09/20 08/09/20 08/10/20 22:01 22:01 01:53 WBC 11.47 H RBC 3.38 L Hgb 11.0 L Hct 32.2 L MCV 95.3 MCH 32.5 MCHC 34.2 RDW Std Deviation 43.8 RDW Coeff of Melvin 12.7 Plt Count 180 MPV 9.4 Immature Gran % (Auto) 0.3 Neut % (Auto) 75.8 Lymph % (Auto) 15.2 Eaton % (Auto) 8.2 Eos % (Auto) 0.3 Baso % (Auto) 0.2 Reticulocyte % (Auto) Neut # (Auto) 8.71 H Lymph # (Auto) 1.74 Eaton # (Auto) 0.94 H Eos # (Auto) 0.03 Baso # (Auto) 0.02 Reticulocyte # Immature Gran # (Auto) 0.03 H PT INR APTT PTT Ratio Sodium 136 Potassium 4.6 Chloride 102 Carbon Dioxide 29 Anion Gap 6.0 BUN 26 H Creatinine 0.89 Est Cr Clr Drug Dosing 77.2 Est GFR ( Amer) 100.4 Est GFR (Non-Af Amer) 86.6 BUN/Creatinine Ratio 29.0 H Glucose 114 H Estimat Average Glucose 100 Hemoglobin A1c 5.1 Lactate Calcium 8.3 L Magnesium 1.9 Iron TIBC Transferrin Ferritin Total Bilirubin 0.6 AST 22 ALT 24 Alkaline Phosphatase 71 Troponin I < 0.015 Total Protein 6.3 L Albumin 3.4 Globulin 2.9 Albumin/Globulin Ratio 1.2 Lipase 139 Vitamin B12 Folate Urine Color Urine Appearance Urine pH Ur Specific [place] Urine Protein Urine Glucose (UA) Urine Ketones Urine Blood Urine Nitrite Urine Bilirubin Urine Urobilinogen Ur Leukocyte Esterase Urine WBC (Auto) Urine RBC (Auto) U Hyaline Cast (Auto) U Epithel Cells (Auto) Urine Bacteria (Auto) Urine Mucus COVID-19 Eval Order Hepatitis C Ab Screen SARS-CoV-2, RNA, NAAT Blood Type Antibody Screen 08/10/20 08/10/20 08/10/20 01:53 01:53 01:53 WBC RBC Hgb Hct MCV MCH MCHC RDW Std Deviation RDW Coeff of Melvin Plt Count MPV Immature Gran % (Auto) Neut % (Auto) Lymph % (Auto) [place]aton % (Auto) Eos % (Auto) Baso % (Auto) Reticulocyte % (Auto) Neut # (Auto) Lymph # (Auto) Eaton # (Auto) Eos # (Auto) Baso # (Auto) Reticulocyte # Immature Gran # (Auto) PT INR APTT PTT Ratio Sodium 136 Potassium 4.3 Chloride 104 Carbon Dioxide 26 Anion Gap 6.0 BUN 28 H Creatinine 0.86 Est Cr Clr Drug Dosing 94.3 Est GFR ( Amer) 101.8 Est GFR (Non-Af Amer) 87.9 BUN/Creatinine Ratio 32.1 H Glucose 143 H Estimat Average Glucose Hemoglobin A1c Lactate 2.0 Calcium 7.8 L Magnesium Iron TIBC Transferrin Ferritin Total Bilirubin AST ALT Alkaline Phosphatase Troponin I Total Protein Albumin Globulin Albumin/Globulin Ratio Lipase Vitamin B12 Folate Urine Color Urine Appearance Urine pH Ur Specific [place] Urine Protein Urine Glucose (UA) Urine Ketones Urine Blood Urine Nitrite Urine Bilirubin Urine Urobilinogen Ur Leukocyte Esterase Urine WBC (Auto) Urine RBC (Auto) U Hyaline Cast (Auto) U Epithel Cells (Auto) Urine Bacteria (Auto) Urine Mucus COVID-19 Eval Order Hepatitis C Ab Screen Neg SARS-CoV-2, RNA, NAAT Blood Type Antibody Screen 08/10/20 08/10/20 08/10/20 02:35 07:30 07:30 WBC RBC Hgb Hct MCV MCH MCHC RDW Std Deviation RDW Coeff of Melvin Plt Count MPV Immature Gran % (Auto) Neut % (Auto) Lymph % (Auto) Eaton % (Auto) Eos % (Auto) Baso % (Auto) Reticulocyte % (Auto) Neut # (Auto) Lymph # (Auto) Eaton # (Auto) Eos # (Auto) Baso # (Auto) Reticulocyte # Immature Gran # (Auto) PT INR APTT PTT Ratio Sodium Potassium Chloride Carbon Dioxide Anion Gap BUN Creatinine Est Cr Clr Drug Dosing Est GFR ( Amer) Est GFR (Non-Af Amer) BUN/Creatinine Ratio Glucose Estimat Average Glucose Hemoglobin A1c Lactate Calcium Magnesium Iron TIBC Transferrin Ferritin Total Bilirubin AST ALT Alkaline Phosphatase Troponin I Total Protein Albumin Globulin Albumin/Globulin Ratio Lipase Vitamin B12 Folate Urine Color Yellow Urine Appearance Clear Urine pH 7.5 Ur Specific [place] 1.020 Urine Protein 1+ H Urine Glucose (UA) Negative Urine Ketones Negative Urine Blood Negative Urine Nitrite Negative Urine Bilirubin Negative Urine Urobilinogen Negative Ur Leukocyte Esterase Negative Urine WBC (Auto) 1-5 Urine RBC (Auto) 0-4 U Hyaline Cast (Auto) 5-10 H U Epithel Cells (Auto) >30 H Urine Bacteria (Auto) Negative Urine Mucus Present A COVID-19 Eval [facility] C Ab Screen SARS-CoV-2, RNA, NAAT NEGATIVE Blood Type Antibody Screen 08/10/20 08/10/20 08/10/20 08:02 08:02 08:02 WBC RBC Hgb 10.7 L Hct 32.0 L MCV MCH MCHC RDW Std Deviation RDW Coeff of Melvin Plt Count MPV Immature Gran % (Auto) Neut % (Auto) Lymph % (Auto) Eaton % (Auto) Eos % (Auto) Baso % (Auto) Reticulocyte % (Auto) 2.8 H Neut # (Auto) Lymph # (Auto) [place] # (Auto) Eos # (Auto) Baso # (Auto) Reticulocyte # 0.09 Immature Gran # (Auto) PT INR APTT PTT Ratio Sodium Potassium Chloride Carbon Dioxide Anion Gap BUN Creatinine Est Cr Clr Drug Dosing Est GFR ( Amer) Est GFR (Non-Af Amer) BUN/Creatinine Ratio Glucose Estimat Average Glucose Hemoglobin A1c Lactate Calcium Magnesium Iron 128 TIBC 323 Transferrin 240 Ferritin 156.4 Total Bilirubin AST ALT Alkaline Phosphatase Troponin I Total Protein Albumin Globulin Albumin/Globulin Ratio Lipase Vitamin B12 325 Folate > 24.00 Urine Color Urine Appearance Urine pH Ur Specific [place] Urine Protein Urine Glucose (UA) Urine Ketones Urine Blood Urine Nitrite Urine Bilirubin Urine Urobilinogen Ur Leukocyte Esterase Urine WBC (Auto) Urine RBC (Auto) U Hyaline Cast (Auto) U Epithel Cells (Auto) Urine Bacteria (Auto) Urine Mucus COVID-19 Eval Order Hepatitis C Ab Screen SARS-CoV-2, RNA, NAAT Blood Type Antibody Screen
--- NOTE | 2020-08-10 13:18 | GI REPORT ---
Patient Name: Eric García Procedure Date: 08/10/2020 12:28 PM Date of : 1950 Admit Type: Inpatient Age: 69 Gender: Male Attending MD: Kiko Ibrahim DO Procedure: Upper GI endoscopy Providers: Kiko Ibrahim DO Referring MD: Freddy Pineda Md Indications: Melena Medicines: Monitored Anesthesia Care Complications: No immediate complications. Estimated blood loss: Minimal. Estimated Blood Loss: Estimated blood loss was minimal. Procedure: Pre-Anesthesia Assessment: - Prior to the procedure, a History and Physical was performed, and patient medications, allergies and sensitivities were reviewed. The patient's tolerance of previous anesthesia was reviewed. - The risks and benefits of the procedure and the sedation options and risks were discussed with the patient. All questions were answered and informed consent was obtained. - Patient identification and proposed procedure were verified prior to the procedure by the physician, the nurse and the optometric technologist. The procedure was verified in the procedure room. - Pre-procedure physical examination revealed no contraindications to sedation. - ASA Grade Assessment: II - A patient with mild systemic disease. - After reviewing the risks and benefits, the patient was deemed in satisfactory condition to undergo the procedure. - The anesthesia plan was to use monitored anesthesia care (MAC). - Immediately prior to administration of medications, the patient was re-assessed for adequacy to receive sedatives. - The heart rate, respiratory rate, oxygen saturations, blood pressure, adequacy of pulmonary ventilation, and response to care were monitored throughout the procedure. - The physical status of the patient was re-assessed after the procedure. After obtaining informed consent, the endoscope was passed under direct vision. Throughout the procedure, the patient's blood pressure, pulse, and oxygen saturations were monitored continuously. The Endoscope was introduced through the mouth, and advanced to the third part of duodenum. The upper GI endoscopy was accomplished without difficulty. The patient tolerated the procedure well. Findings: The examined esophagus was normal. Diffuse moderate inflammation characterized by congestion (edema), erythema and granularity was found in the entire examined stomach. One non-obstructing non-bleeding cratered gastric ulcer with a visible vessel was found on the greater curvature of the gastric body. The lesion was 10 mm in largest dimension. Area was successfully injected with 4 mL of a 1:10,000 solution of epinephrine for drug delivery. Coagulation for hemostasis using bipolar probe was successful. Estimated blood loss was minimal. The examined duodenum was normal. Impression: - Normal esophagus. - Gastritis. - Non-obstructing non-bleeding gastric ulcer with a visible vessel. Injected. Treated with bipolar cautery. - Normal examined duodenum. - No specimens collected. Recommendation: - Return patient to [facility] for [facility] care. - Clear liquid diet today. - Give Protonix (pantoprazole): 8 mg/hr IV by continuous infusion for 3 days. Upon discharge would suggest 40 mg twice daily for 6 weeks then 1 time daily thereafter. - repeat egd in 3 months. Kiko Ibrahim D.O. Kiko Ibrahim, 08/10/2020 1:17:47 PM This report has been signed electronically. Note Initiated On: 08/10/2020 12:28 PM Number of Addenda: 0 I attest to the content of the Intraoperative Record and orders documented therein, exceptions below {[id number]}
--- NOTE | 2020-08-10 13:22 | Post Operative Brief Note ---
Immediate Post Op Note v1 Date of Surgery August 10, 2020 Pre & Post Diagnosis Operation Date: 08/10/20 08:25 Pre-Op Diagnosis: Upper Gastrointestinal bleed Post-Op Diagnosis: Upper Gastrointestinal bleed, severe gastritis, gastric ulcer I identified the patient and participated in the time-out.: Yes Procedure Operation Date: 08/10/20 08:25 Actual Procedures p Esophagogastroduodenoscopy(Not Applicable) - Kiko Ibrahim DO Surgeon Kiko Ibrahim DO Wash Driller Helper none Estimated Blood Loss 0 Findings Consistent with Post-Op Diagnosis
--- NOTE | 2020-08-10 13:23 | Communication Note ---
Date of Service: August 10, 2020 Patient underwent upper endoscopy today. Findings Severe gastritis 1 ulcer along the greater curvature of the gastric body, visible vessel seen This was treated with epinephrine injection and thermal therapy Recommendations Clear liquid diet Continue Protonix drip for another 48 hours (72 hours total) Upon discharge would recommend Protonix or equivalent at 40 mg twice daily for 6 weeks then 1 time daily thereafter repeat upper endoscopy in 3 months Patient should avoid use of nonsteroidals
[2020-08-10] MEDS ORDERED: PROPOFOL IV EMULSION 10 MG/ML 20 ML VIAL IV ONE (13:29)
[2020-08-10] MEDS ORDERED: LIDOCAINE HCL 2% 2 ML VIAL/AMP(20MG/ML) INFIL ONE (13:29)
--- NOTE | 2020-08-10 13:50 | Anesthesiology Progress Note ---
Date of Service August 10, 2020 Anesthesia Post Procedure Vital Signs Vital Signs: Temp Pulse Pulse Pulse Resp BP BP 08/10/20 13:45 16 L 13 148/85 H 08/10/20 13:40 98.8 F 78 13 138/88 08/10/20 13:30 76 16 158/85 H 08/10/20 13:23 98.2 F 84 13 08/10/20 11:31 98.1 F 84 20 121/76 08/10/20 08:01 97.7 F 85 18 142/86 H 08/10/20 07:16 83 08/10/20 03:58 97.9 F 81 18 103/64 08/10/20 02:50 96 H 08/10/20 02:01 107/63 08/10/20 01:02 98.6 F 102 H 18 116/67 08/10/20 00:00 86 15 141/75 H 08/09/20 23:30 81 18 148/85 H 08/09/20 23:00 80 13 149/83 H 08/09/20 22:30 94 H 16 148/78 H 08/09/20 22:22 91 H 14 08/09/20 21:17 98.1 F 106 H 18 177/96 H BP Pulse Ox 08/10/20 13:45 96 08/10/20 13:40 96 08/10/20 13:30 98 08/10/20 13:23 140/71 96 08/10/20 11:31 98 08/10/20 08:01 97 08/10/20 07:16 08/10/20 03:58 98 08/10/20 02:50 08/10/20 02:01 08/10/20 01:02 95 08/10/20 00:00 96 08/09/20 23:30 97 08/09/20 23:00 96 08/09/20 22:30 98 08/09/20 22:22 97 08/09/20 21:17 98 Transfer of Care Handoff Completed per policy Notes Mental Status: alert / awake / arousable and participated in evaluation Patient Amnestic to Procedure: Yes Nausea / Vomiting: adequately controlled Pain: adequately controlled Airway Patency, RR, SpO2: stable & adequate BP & HR: stable & adequate Hydration State: stable & adequate Anesthetic Complications: no major complications apparent and Pt Satisfied with anesthetic care
[2020-08-10 15:00] LABS: Hematocrit (blood only) 32.3 % (42-52); Hemoglobin 10.3 g/dL (14.0-18.0)
[2020-08-10] MEDS ORDERED: SODIUM CHLORIDE 0.9% 1000ML 1,000 ML IV SCH (16:30)
[2020-08-10 20:01] LABS: Hematocrit (blood only) 30.3 % (42-52); Hemoglobin 9.9 g/dL (14.0-18.0)
[2020-08-11] MEDS: PANTOprazole 40 MG in DEXTROSE 5% 100 ML IV SCH ×5 (00:45→20:42)
[2020-08-11] MEDS: GABAPENTIN 600 MG TAB PO SCH ×3 (05:47→23:50)
--- NOTE | 2020-08-11 07:34 | Gastroenterology Progress Note ---
Date of Service August 11, 2020 Assessment & Plan (1) Gastric ulcer: Patient with gastric ulcer status post upper endoscopy with therapeutic intervention. At the present time his hemoglobin and hematocrit appear to be stable. Should the patient have evidence of rebleeding he would likely need transfer to a tertiary center with interventional radiology. Recommendations Continue Protonix drip for another 24 hours Upon discharge patient should be on Protonix or omeprazole 40 mg twice daily for 6 weeks then 1 time daily thereafter Consider use of an iron supplement for 6 to 8 weeks Repeat upper endoscopy in 3 months Advance diet as tolerated today Please call with any questions or concerns Admission and Anticipated Discharge Date Admission Date: August 09, 2020 Subjective Patient notes that he is feeling well this morning. He has no abdominal discomfort. He did have 1 passage of black stool yesterday afternoon but otherwise reports that he is feeling well Review of Systems Constitutional: no sweats and no malaise Eyes: no diplopia Respiratory: no change in sputum and no hemoptysis Cardiovascular: no chest pain with activity and no dyspnea at rest Gastrointestinal: no bloating and no nausea Physical Exam Constitutional: well developed and well nourished; no acute distress and not ill appearing Eyes: PERRL, conjunctivae normal, anicteric sclerae Neck: trachea midline, no thyromegaly Respiratory: normal respiratory effort, lungs clear to auscultation Cardiovascular: Rate/Rhythm: regular rate; not tachycardic Results & Data ([facility]) Vital Signs (Past 12 Hours) Vital Signs Temp Pulse Pulse Resp BP Pulse Ox 08/11/20 04:00 36.4 C L 68 18 145/80 H 96 08/10/20 22:20 76 08/10/20 22:00 36.6 C 73 18 127/72 97 Laboratory Results Laboratory Results - last 24 hr 08/10/20 08/10/20 08/10/20 07:30 07:30 08:02 Hgb 10.7 L Hct 32.0 L Reticulocyte % (Auto) 2.8 H Reticulocyte # 0.09 Iron TIBC Transferrin Ferritin Vitamin B12 Folate COVID-19 [facility] SARS-CoV-2, RNA, NAAT NEGATIVE 08/10/20 08/10/20 08/10/20 08:02 08:02 14:26 Hgb 10.3 L Hct 32.3 L Reticulocyte % (Auto) Reticulocyte # Iron 128 TIBC 323 Transferrin 240 Ferritin 156.4 Vitamin B12 325 Folate > 24.00 COVID-19 Eval Order SARS-CoV-2, RNA, NAAT 08/10/20 19:35 Hgb 9.9 L Hct 30.3 L Reticulocyte % (Auto) Reticulocyte # Iron TIBC Transferrin Ferritin Vitamin B12 Folate COVID-19 Eval Order SARS-CoV-2, RNA, NAAT
[2020-08-11] MEDS: FOLIC ACID 1 MG TAB PO SCH (07:36)
[2020-08-11] MEDS: MULTIVITAMIN TAB PO SCH (07:36)
[2020-08-11] MEDS: ATORVASTATIN 20 MG TAB PO SCH (07:36)
[2020-08-11] MEDS: SODIUM CHLORIDE 0.9% 1000ML 1,000 ML IV SCH ×2 (07:36→23:50)
[2020-08-11] MEDS: THIAMINE HCL 100 MG TAB PO SCH (07:37)
[2020-08-11] MEDS: METOPROLOL SUCC 25MG EXT REL TAB PO SCH (07:37)
--- NOTE | 2020-08-11 07:52 | Hospitalist Progress Note ---
Date of Service August 11, 2020 Assessment & Plan (1) UGIB (upper gastrointestinal bleed): UGIB 2/2 gastric ulcer, severe gastritis Some degree of hemodynamic instability with positive orthostatic vitals at the ER. ? Alcoholic gastritis (hx at risk alcohol consumption, possible alcohol abuse, pt denies use of NSAIDs) Medical telemetry IV PPI, cont. for 72 hrs total then PO PPI GI consult RE UGIB Now pt is s/p EGD (08/10) w/ Dr. Ibrahim Findings: Severe gastritis 1 ulcer along the greater curvature of the gastric body, visible vessel seen- This was treated with epinephrine injection and thermal therapy Recommendations Clear liquid diet, advance to full liquid Continue Protonix drip (72 hours total) Upon discharge would recommend Protonix or equivalent at 40 mg twice daily for 6 weeks then 1 time daily thereafter repeat upper endoscopy in 3 months Patient should avoid use of nonsteroidals Serial H&H, transfuse PRBC if hemoglobin less than 7 and or for symptomatic anemia AWSS/DT precautions Hypertension, BP slightly elevated Hyperlipidemia on statin Rx Hyperglycemia rule out DM, current Hgb A1c 5.1% Past tobacco abuse DVT prophylaxis. SCDs RE GI bleed Full code Admission and Anticipated Discharge Date Admission Date: August 09, 2020 Subjective Pt is laying in bed, in NAD. No acute events overnight. Denies any chest pain, shortness of breath, abdominal pain. Also denies any dizziness or lightheadedness when getting up from bed, says he is feeling well this morning. Reports having dark/ black stool yesterday afternoon. Hgb 10.1 this AM, stable Review of Systems Review of Systems: All systems reviewed & are unremarkable except as noted in HPI & below Constitutional: no fever and no chills Respiratory: no cough and no dyspnea Cardiovascular: no chest pain and no palpitations Gastrointestinal: no abdominal pain, no nausea and no vomiting dark stool Physical Exam Physical Exam: GENERAL: Elderly obese male laying in bed, in no distress HEENT: NC/AT, EOMI, pale palpebral conjunctivae, no ptosis NECK : Supple, short neck, no tenderness CHEST : CTAB, no tenderness HEART : RRR, no obvious murmurs ABDOMEN: Some distention, no overt tenderness, soft, obese SKIN: warm, dry EXTREMITIES : No LE swelling/tenderness, moves extremities spontaneously NEUROLOGIC : alert and oriented x3, no facial asymmetry, no dysarthria, moves extremities spontaneously Results & Data Results & Data ([facility]) Vital Signs (Past 12 Hours) Vital Signs Temp Pulse Pulse Resp BP BP Pulse Ox 08/11/20 07:48 36.7 C 75 20 138/79 94 08/11/20 04:00 36.4 C L 68 18 145/80 H 96 08/10/20 22:20 76 08/10/20 22:00 36.6 C 73 18 127/72 97 Laboratory Results 08/11/20 08/11/20 08/10/20 Range/Units 07:58 07:58 19:35 WBC 8.10 (4.8-10.8) K/uL RBC 3.12 L (4.7-6.1) M/uL Hgb 10.1 L 9.9 L (14.0-18.0) g/dL Hct 30.3 L 30.3 L (42-52) % MCV 97.1 (80-100) fL MCH 32.4 (25-34) pg MCHC 33.3 (32-36) g/dL RDW Std Deviation 46.3 (36.4-46.3) fL RDW Coeff of Melvin 13.3 (11.5-14.5) % Plt Count 172 (130-400) K/uL MPV 9.6 (7.4-10.4) fL Sodium 137 (136-145) mmol/L Potassium 3.8 (3.5-5.1) mmol/L Chloride 103 (98-107) mmol/L Carbon Dioxide 29 (21-32) mmol/L Anion Gap 5.0 (3-11) BUN 15 (7-18) mg/dl Creatinine 0.87 (0.6-1.4) mg/dl Est Cr Clr Drug Dosing 93.3 ml/min Est GFR ( Amer) 101.3 Est GFR (Non-Af Amer) 87.4 BUN/Creatinine Ratio 17.0 (10-20) Glucose 92 (70-99) mg/dl Calcium 8.4 L (8.5-10.1) mg/dl Phosphorus 3.5 (2.5-4.9) mg/dl Magnesium 2.1 (1.8-2.4) mg/dl 08/10/20 Range/Units 14:26 WBC (4.8-10.8) K/uL RBC (4.7-6.1) M/uL Hgb 10.3 L (14.0-18.0) g/dL Hct 32.3 L (42-52) % MCV (80-100) fL MCH (25-34) pg MCHC (32-36) g/dL RDW Std Deviation (36.4-46.3) fL RDW Coeff of Melvin (11.5-14.5) % Plt Count (130-400) K/uL MPV (7.4-10.4) fL Sodium (136-145) mmol/L Potassium (3.5-5.1) mmol/L Chloride (98-107) mmol/L Carbon Dioxide (21-32) mmol/L Anion Gap (3-11) BUN (7-18) mg/dl Creatinine (0.6-1.4) mg/dl Est Cr Clr Drug Dosing ml/min Est GFR ( Amer) Est GFR (Non-Af Amer) BUN/Creatinine Ratio (10-20) Glucose (70-99) mg/dl Calcium (8.5-10.1) mg/dl Phosphorus (2.5-4.9) mg/dl Magnesium (1.8-2.4) mg/dl Medications Administered Current Inpatient Medications Acetaminophen (Acetaminophen 325 Mg Tab) 650 mg PO Q4H PRN PRN Reason: Pain or Fever Stop: 09/09/20 01:00 Atorvastatin Calcium (Atorvastatin 20 Mg Tab) 20 mg PO QAM [facility] Stop: 09/09/20 08:59 Last Admin: 08/11/20 07:36 Dose: 20 mg Documented by: Cetirizine HCl (Cetirizine Hcl 10 Mg Tablet) 10 mg PO QAM PRN PRN Reason: allergies Stop: 09/09/20 01:00 Folic Acid (Folic Acid 1 Mg Tab) 1 mg PO QAM [facility] Stop: 09/10/20 08:59 Last Admin: 08/11/20 07:36 Dose: 1 mg Documented by: Gabapentin (Gabapentin 600 Mg Tab) 600 mg PO Q8H [facility] Stop: 08/11/20 14:01 Last Admin: 08/11/20 05:47 Dose: 600 mg Documented by: Gabapentin (Gabapentin 600 Mg Tab) 600 mg PO Q12H [facility] Stop: 08/12/20 12:01 Gabapentin (Gabapentin 600 Mg Tab) 600 mg PO Q24H [facility] Stop: 08/13/20 12:01 Pantoprazole Sodium 40 mg/ (Dextrose) 100 mls @ 20 mls/hr IV Q5H [facility] Stop: 09/08/20 23:14 Last Admin: 08/11/20 10:11 Dose: 8 mg/hr, 20 mls/hr Documented by: Lorazepam (Ativan) 1 mg in 2 mls @ 2 mls/min IV UD PRN; Protocol PRN Reason: EtOH Withdrawl AWSS Score 6,7 Stop: 09/09/20 01:00 Lorazepam (Ativan) 2 mg in 4 mls @ 4 mls/min IV UD PRN; Protocol PRN Reason: EtOH Withdrawl AWSS Score 8,9 Stop: 09/09/20 01:00 Lorazepam (Ativan) 3 mg in 6 mls @ 4 mls/min IV ONCE PRN; Protocol PRN Reason: EtOH Withdrawl AWSS Score >=10 Stop: 09/09/20 01:00 Promethazine HCl 12.5 mg/ (Sodium Chloride) 50.5 mls @ 202 mls/hr IV Q6H PRN PRN Reason: Nausea And Vomiting Stop: 09/09/20 01:00 Sodium Chloride (Nss 1000ml) 1,000 mls @ 60 mls/hr IV .[id number] [facility] Stop: 09/09/20 02:59 Last Admin: 08/11/20 07:36 Dose: 60 mls/hr Documented by: Metoprolol Succinate (Metoprolol Succ 25mg Ext Rel Tab) [facility] Stop: 09/09/20 08:59 Last Admin: 08/11/20 07:37 Dose: 25 mg Documented by: Morphine Sulfate (Morphine Sulfate 2 Mg/Ml Carp) 2 mg IV Q4H PRN PRN Reason: Pain Stop: 08/24/20 01:00 Multivitamins (Multivitamin Tab) 1 tab PO [facility] Stop: 09/10/20 08:59 Last Admin: 08/11/20 07:36 Dose: 1 tab Documented by: Oxycodone HCl (Oxycodone Hcl Ir 5 Mg Tab (Immediate Release)) 5 mg PO Q4H PRN PRN Reason: Pain Stop: 08/24/20 01:00 Sertraline HCl (Sertraline Hcl 50 Mg Tablet) 25 mg PO [facility] Stop: 09/10/20 10:29 Thiamine HCl (Thiamine Hcl 100 Mg Tab) 100 mg PO [facility] Stop: 09/10/20 08:59 Last Admin: 08/11/20 07:37 Dose: 100 mg Documented by:
[2020-08-11 08:38] LABS: Hematocrit (blood only) 30.3 % (42-52); Hemoglobin 10.1 g/dL (14.0-18.0); Mean Corpuscular Hemoglobin 32.4 pg (25-34); Mean Corpuscular Hgb Conc 33.3 g/dL (32-36); Mean Corpuscular Volume 97.1 fL (80-100); Mean Platelet Volume 9.6 fL (7.4-10.4); Platelet Count 172 K/uL (130-400); RDW Coefficient of Variation 13.3 % (11.5-14.5); RDW Standard Deviation 46.3 fL (36.4-46.3); Red Blood Count 3.12 M/uL (4.7-6.1)
[2020-08-11 09:10] LABS: Calcium 8.4 mg/dl (8.5-10.1); Creatinine Clr Calc Pharmacy 93.3 ml/min; Est GFR (African American) 101.3; Est GFR (Non-African American) 87.4; Magnesium 2.1 mg/dl (1.8-2.4); Phosphorus 3.5 mg/dl (2.5-4.9); Potassium 3.8 mmol/L (3.5-5.1)
[2020-08-11] MEDS: SERTRALINE HCL 50 MG TABLET PO SCH (11:48)
[2020-08-11 14:23] LABS: Hematocrit (blood only) 27.6 % (42-52); Hemoglobin 9.2 g/dL (14.0-18.0)
[2020-08-11] MEDS ORDERED: LORazepam 0.5 MG TAB PO STA (19:21)
[2020-08-11 21:00] LABS: Hematocrit (blood only) 24.4 % (42-52); Hemoglobin 8.1 g/dL (14.0-18.0)
[2020-08-12] MEDS: PANTOprazole 40 MG in DEXTROSE 5% 100 ML IV SCH ×5 (01:42→22:36)
[2020-08-12 07:21] LABS: Hematocrit (blood only) 26.3 % (42-52); Hemoglobin 8.8 g/dL (14.0-18.0); Mean Corpuscular Hemoglobin 32.4 pg (25-34); Mean Corpuscular Hgb Conc 33.5 g/dL (32-36); Mean Corpuscular Volume 96.7 fL (80-100); Mean Platelet Volume 9.5 fL (7.4-10.4); Platelet Count 150 K/uL (130-400); RDW Coefficient of Variation 13.3 % (11.5-14.5); Red Blood Count 2.72 M/uL (4.7-6.1); White Blood Count 6.17 K/uL (4.8-10.8)
[2020-08-12 07:54] LABS: BUN Creatinine Ratio 11.8 (10-20); Creatinine Clr Calc Pharmacy 114.5 ml/min; Est GFR (African American) 110.2; Est GFR (Non-African American) 95.1; Potassium 3.8 mmol/L (3.5-5.1)
--- NOTE | 2020-08-12 08:04 | Hospitalist Progress Note ---
Date of Service August 12, 2020 Assessment & Plan (1) UGIB (upper gastrointestinal bleed): UGIB 2/2 gastric ulcer, severe gastritis Acute blood loss anemia secondary to above Some degree of hemodynamic instability with positive orthostatic vitals at the ER. ? Alcoholic gastritis (hx at risk alcohol consumption, possible alcohol abuse, pt denies use of NSAIDs) Medical telemetry IV PPI, cont. for 72 hrs total then PO PPI GI consult RE UGIB Now pt is s/p EGD (08/10) w/ Dr. Ibrahim Findings: Severe gastritis 1 ulcer along the greater curvature of the gastric body, visible vessel seen- This was treated with epinephrine injection and thermal therapy Advance diet Continue Protonix drip (72 hours total) Upon discharge would recommend Protonix or equivalent at 40 mg twice daily for 6 weeks then 1 time daily thereafter Repeat upper endoscopy in 3 months Patient should avoid use of nonsteroidals Serial H&H, transfuse PRBC if hemoglobin less than 7 and or for symptomatic anemia H&H 8.1 and 8.8 AWSS/DT precautions Hypertension, BP slightly elevated Hyperlipidemia on statin Rx Hyperglycemia rule out DM, current Hgb A1c 5.1% Past tobacco abuse DVT prophylaxis. SCDs RE GI bleed Full code Admission and Anticipated Discharge Date Admission Date: August 11, 2020 Subjective Patient is sitting up in the bed, in no acute distress. He says that he feels well. Denies any dizziness or lightheadedness when he stands up or walks around. No abdominal pain either. Had a small dark stool this morning and 2 small dark stools yesterday. No issues with diet. Hemoglobin 8.1 yesterday afternoon, 8.8 this morning. We will continue to closely monitor. Review of Systems Review of Systems: All systems reviewed & are unremarkable except as noted in HPI & below Constitutional: no fever and no chills Respiratory: no cough and no dyspnea Cardiovascular: no chest pain and no palpitations Gastrointestinal: no abdominal pain, no nausea and no vomiting dark stool Physical Exam Physical Exam: GENERAL: Elderly obese male sitting up in bed, in no distress HEENT: NC/AT, EOMI,no ptosis NECK : Supple, short neck, no tenderness CHEST : CTAB, no tenderness HEART : RRR, no obvious murmurs ABDOMEN: Some distention, no tenderness to palpation, soft, obese SKIN: warm, dry EXTREMITIES : No LE swelling/tenderness, moves extremities spontaneously NEUROLOGIC : alert and oriented x3, no facial asymmetry, no dysarthria, moves extremities spontaneously Results & Data Results & Data ([facility]) Vital Signs (Past 12 Hours) Vital Signs Temp Pulse Pulse Resp BP BP Pulse Ox 08/12/20 07:43 36.6 C 65 16 142/82 H 97 08/12/20 07:00 69 08/12/20 04:00 36.6 C 69 18 137/74 95 08/12/20 02:32 69 08/11/20 23:00 36.4 C L 71 18 124/95 95 Laboratory Results 08/12/20 08/12/20 08/11/20 Range/Units 06:49 06:49 20:46 WBC 6.17 (4.8-10.8) K/uL RBC 2.72 L (4.7-6.1) M/uL Hgb 8.8 L 8.1 L (14.0-18.0) g/dL Hct 26.3 L 24.4 L (42-52) % MCV 96.7 (80-100) fL MCH 32.4 (25-34) pg MCHC 33.5 (32-36) g/dL RDW Std Deviation 47.0 H (36.4-46.3) fL RDW Coeff of Melvin 13.3 (11.5-14.5) % Plt Count 150 (130-400) K/uL MPV 9.5 (7.4-10.4) fL Sodium 139 (136-145) mmol/L Potassium 3.8 (3.5-5.1) mmol/L Chloride 106 (98-107) mmol/L Carbon Dioxide 30 (21-32) mmol/L Anion Gap 3.0 (3-11) BUN 8 D (7-18) mg/dl Creatinine 0.71 (0.6-1.4) mg/dl Est Cr Clr Drug Dosing 114.5 ml/min Est GFR ( Amer) 110.2 Est GFR (Non-Af Amer) 95.1 BUN/Creatinine Ratio 11.8 (10-20) Glucose 87 (70-99) mg/dl Calcium 8.0 L (8.5-10.1) mg/dl Phosphorus (2.5-4.9) mg/dl Magnesium (1.8-2.4) mg/dl 08/11/20 08/11/20 08/11/20 Range/Units 14:02 07:58 07:58 WBC 8.10 (4.8-10.8) K/uL RBC 3.12 L (4.7-6.1) M/uL Hgb 9.2 L 10.1 L (14.0-18.0) g/dL Hct 27.6 L 30.3 L (42-52) % MCV 97.1 (80-100) fL MCH 32.4 (25-34) pg MCHC 33.3 (32-36) g/dL RDW Std Deviation 46.3 (36.4-46.3) fL RDW Coeff of Melvin 13.3 (11.5-14.5) % Plt Count 172 (130-400) K/uL MPV 9.6 (7.4-10.4) fL Sodium 137 (136-145) mmol/L Potassium 3.8 (3.5-5.1) mmol/L Chloride 103 (98-107) mmol/L Carbon Dioxide 29 (21-32) mmol/L Anion Gap 5.0 (3-11) BUN 15 (7-18) mg/dl Creatinine 0.87 (0.6-1.4) mg/dl Est Cr Clr Drug Dosing 93.3 ml/min Est GFR ( Amer) 101.3 Est GFR (Non-Af Amer) 87.4 BUN/Creatinine Ratio 17.0 (10-20) Glucose 92 (70-99) mg/dl Calcium 8.4 L (8.5-10.1) mg/dl Phosphorus 3.5 (2.5-4.9) mg/dl Magnesium 2.1 (1.8-2.4) mg/dl Medications Administered Current Inpatient Medications Acetaminophen (Acetaminophen 325 Mg Tab) 650 mg PO Q4H PRN PRN Reason: Pain or Fever Stop: 09/09/20 01:00 Atorvastatin Calcium (Atorvastatin 20 Mg Tab) 20 mg PO QAM [facility] Stop: 09/09/20 08:59 Last Admin: 08/11/20 07:36 Dose: 20 mg Documented by: Cetirizine HCl (Cetirizine Hcl 10 Mg Tablet) 10 mg PO QAM PRN PRN Reason: allergies Stop: 09/09/20 01:00 Folic Acid (Folic Acid 1 Mg Tab) [facility] [place]: 09/10/20 08:59 Last Admin: 08/11/20 07:36 Dose: 1 mg Documented by: Gabapentin (Gabapentin 600 Mg Tab) 600 mg PO Q12H [facility] Stop: 08/12/20 12:01 Last Admin: 08/11/20 23:50 Dose: 600 mg Documented by: Gabapentin (Gabapentin 600 Mg Tab) 600 mg PO Q24H [facility] Stop: 08/13/20 12:01 Pantoprazole Sodium 40 mg/ (Dextrose) 100 mls @ 20 mls/hr IV Q5H [facility] Stop: 09/08/20 23:14 Last Admin: 08/12/20 06:14 Dose: 8 mg/hr, 20 mls/hr Documented by: Lorazepam (Ativan) 1 mg in 2 mls @ 2 mls/min IV UD PRN; Protocol PRN Reason: EtOH Withdrawl AWSS Score 6,7 Stop: 09/09/20 01:00 Lorazepam (Ativan) 2 mg in 4 mls @ 4 mls/min IV UD PRN; Protocol PRN Reason: EtOH Withdrawl AWSS Score 8,9 Stop: 09/09/20 01:00 Lorazepam (Ativan) 3 mg in 6 mls @ 4 mls/min IV ONCE PRN; Protocol PRN Reason: EtOH Withdrawl AWSS Score >=10 Stop: 09/09/20 01:00 Promethazine HCl 12.5 mg/ (Sodium Chloride) 50.5 mls @ 202 mls/hr IV Q6H PRN PRN Reason: Nausea And Vomiting Stop: 09/09/20 01:00 Sodium Chloride (Nss 1000ml) 1,000 mls @ 60 mls/hr IV .[id number] [facility] Stop: 09/09/20 02:59 Last Admin: 08/11/20 23:50 Dose: 60 mls/hr Documented by: Metoprolol Succinate (Metoprolol Succ 25mg Ext Rel Tab) [facility] [place]: 09/09/20 08:59 Last Admin: 08/11/20 07:37 Dose: 25 mg Documented by: Morphine Sulfate (Morphine Sulfate 2 Mg/Ml Carp) 2 mg IV Q4H PRN PRN Reason: Pain Stop: 08/24/20 01:00 Multivitamins (Multivitamin Tab) 1 tab [facility] [place]: 09/10/20 08:59 Last Admin: 08/11/20 07:36 Dose: 1 tab Documented by: Oxycodone HCl (Oxycodone Hcl Ir 5 Mg Tab (Immediate Release)) 5 mg PO Q4H PRN PRN Reason: Pain Stop: 08/24/20 01:00 Sertraline HCl (Sertraline Hcl 50 Mg Tablet) 25 mg PO [facility] Stop: 09/10/20 10:29 Last Admin: 08/11/20 11:48 Dose: 25 mg Documented by: Thiamine HCl (Thiamine Hcl 100 Mg Tab) 100 mg PO [facility] Stop: 09/10/20 08:59 Last Admin: 08/11/20 07:37 Dose: 100 mg Documented by:
[2020-08-12] MEDS: SERTRALINE HCL 50 MG TABLET PO SCH (08:10)
[2020-08-12] MEDS: THIAMINE HCL 100 MG TAB PO SCH (08:11)
[2020-08-12] MEDS: ATORVASTATIN 20 MG TAB PO SCH (08:11)
[2020-08-12] MEDS: METOPROLOL SUCC 25MG EXT REL TAB PO SCH (08:12)
[2020-08-12] MEDS: FOLIC ACID 1 MG TAB PO SCH (08:12)
[2020-08-12] MEDS: MULTIVITAMIN TAB PO SCH (08:15)
--- NOTE | 2020-08-12 09:13 | Gastroenterology Progress Note ---
Date of Service August 12, 2020 Assessment & Plan (1) Gastric ulcer: (2) Acute GI bleeding: Pt is a 69 y/o male admitted w UGI bleed, found to have gastric ulcer which was treated by epi injection and APC via EGD on 08/10. He noticed less amt of bleeding and black stools. Denies abd pain, n/v otherwise. - Complete PPI gtt till midnight tonight - Repeat EGD in 3 months to check for ulcer healing - Consider Fe supplement x 6-8 weeks - Monitor blood ct closely Attg add: I interviewed and examined pt, reviewed chart and labs. Cont hgb drop, although stable BUN, VS. Persistent dark stool. Will follow, consider EGD if hgb drops further. Admission and Anticipated Discharge Date Admission Date: August 11, 2020 Subjective Pt ate solid breakfast, denies any abd pain, n/v. Stools dark w some black mixed in this morning. H/H stable Review of Systems Review of Systems: All systems reviewed & are unremarkable except as noted in HPI & below Physical Exam Constitutional: WD/WN, vitals as above well groomed, cooperative and comfortable Eyes: PERRL, conjunctivae normal, anicteric sclerae ENMT: external ear and nose normal, oropharynx normal Respiratory: normal respiratory effort, lungs clear to auscultation Cardiovascular: RRR, no murmur, no edema Gastrointestinal (Abdomen): normal bowel sounds, soft, nontender, no hepatosplenomegaly Skin: no rashes, warm and dry no jaundice Psychiatric: A+Ox3, euthymic affect Lymphatic: no lymphedema Results & Data ([facility]) Vital Signs (Past 12 Hours) Vital Signs Temp Pulse Pulse Resp BP BP Pulse Ox 08/12/20 07:43 36.6 C 65 16 142/82 H 97 08/12/20 07:00 69 08/12/20 04:00 36.6 C 69 18 137/74 95 08/12/20 02:32 69 08/11/20 23:00 36.4 C L 71 18 124/95 95
[2020-08-12] MEDS ORDERED: LORazepam 0.5 MG TAB PO ONE (12:52)
[2020-08-12] MEDS: GABAPENTIN 600 MG TAB PO SCH (13:02)
[2020-08-12 14:17] LABS: Hematocrit (blood only) 25.2 % (42-52); Hemoglobin 8.2 g/dL (14.0-18.0)
[2020-08-12] MEDS ORDERED: LORazepam 0.5 MG/1 ML VIAL IV PRN (19:24)
[2020-08-12 21:26] LABS: Hematocrit (blood only) 25.2 % (42-52); Hemoglobin 8.3 g/dL (14.0-18.0)
[2020-08-13] MEDS: PANTOprazole 40 MG in DEXTROSE 5% 100 ML IV SCH ×2 (01:53→07:26)
[2020-08-13] MEDS: MULTIVITAMIN TAB PO SCH ×2 (07:28→09:09)
[2020-08-13] MEDS: FOLIC ACID 1 MG TAB PO SCH ×2 (07:28→09:10)
[2020-08-13] MEDS: THIAMINE HCL 100 MG TAB PO SCH ×2 (07:29→09:09)
[2020-08-13 07:48] LABS: Hematocrit (blood only) 26.7 % (42-52); Hemoglobin 8.7 g/dL (14.0-18.0); Mean Corpuscular Hemoglobin 31.9 pg (25-34); Mean Corpuscular Hgb Conc 32.6 g/dL (32-36); Mean Corpuscular Volume 97.8 fL (80-100); Mean Platelet Volume 9.6 fL (7.4-10.4); Platelet Count 180 K/uL (130-400); RDW Coefficient of Variation 13.1 % (11.5-14.5); RDW Standard Deviation 45.5 fL (36.4-46.3); Red Blood Count 2.73 M/uL (4.7-6.1); White Blood Count 5.84 K/uL (4.8-10.8)
--- NOTE | 2020-08-13 07:51 | Hospitalist Progress Note ---
Date of Service August 13, 2020 Assessment & Plan (1) UGIB (upper gastrointestinal bleed): UGIB 2/2 gastric ulcer, severe gastritis Acute blood loss anemia secondary to above Some degree of hemodynamic instability with positive orthostatic vitals at the ER. ? Alcoholic gastritis (hx at risk alcohol consumption, possible alcohol abuse, pt denies use of NSAIDs) Medical telemetry IV PPI, cont. for 72 hrs total then PO PPI GI consult RE UGIB Now pt is s/p EGD (08/10) w/ Dr. Ibrahim Findings: Severe gastritis 1 ulcer along the greater curvature of the gastric body, visible vessel seen- This was treated with epinephrine injection and thermal therapy Advance diet Finished Protonix drip (72 hours total) Upon discharge recommend Protonix 40 mg twice daily for 6 weeks then 1 time daily thereafter Repeat upper endoscopy in 3 months Patient should avoid use of nonsteroidals Serial H&H, transfuse PRBC if hemoglobin less than 7 and or for symptomatic anemia H&H 8.7 (08/13/2020), stable AWSS/DT precautions Hypertension, BP at goal now Hyperlipidemia on statin Rx Hyperglycemia rule out DM, current Hgb A1c 5.1% Past tobacco abuse DVT prophylaxis. SCDs RE GI bleed Full code Admission and Anticipated Discharge Date Admission Date: August 11, 2020 Subjective Patient is laying in bed, in no acute distress. Denies any fevers chills, chest pain or shortness of breath. Did not have any more stools, last bowel movement yesterday. He is tolerating diet without difficulty. Hemoglobin stable today. Review of Systems Review of Systems: All systems reviewed & are unremarkable except as noted in HPI & below Constitutional: no fever and no chills Respiratory: no cough and no dyspnea Cardiovascular: no chest pain and no palpitations Gastrointestinal: no abdominal pain, no nausea and no vomiting Genitourinary: no dysuria Physical Exam Physical Exam: GENERAL: Elderly obese male sitting up in bed, in no distress HEENT: NC/AT, EOMI,no ptosis NECK : Supple, short neck, no tenderness CHEST : CTAB, no tenderness HEART : RRR, no obvious murmurs ABDOMEN: Some distention, no tenderness to palpation, soft, obese SKIN: warm, dry EXTREMITIES : No LE swelling/tenderness, moves extremities spontaneously NEUROLOGIC : alert and oriented x3, no facial asymmetry, no dysarthria, moves extremities spontaneously Results & Data Results & Data ([facility]) Vital Signs (Past 12 Hours) Vital Signs Temp Pulse Pulse Resp BP BP Pulse Ox 08/13/20 07:18 36.7 C 64 18 131/73 96 08/13/20 04:00 36.6 C 68 19 149/84 H 96 08/12/20 23:00 36.5 C 76 18 177/90 H 97 08/12/20 20:00 36.6 C 66 18 135/72 99 Laboratory Results 08/13/20 08/13/20 08/12/20 Range/Units 07:14 07:14 21:06 WBC 5.84 (4.8-10.8) K/uL RBC 2.73 L (4.7-6.1) M/uL Hgb 8.7 L 8.3 L (14.0-18.0) g/dL Hct 26.7 L 25.2 L (42-52) % MCV 97.8 (80-100) fL MCH 31.9 (25-34) pg MCHC 32.6 (32-36) g/dL RDW Std Deviation 45.5 (36.4-46.3) fL RDW Coeff of Melvin 13.1 (11.5-14.5) % Plt Count 180 (130-400) K/uL MPV 9.6 (7.4-10.4) fL Sodium 139 (136-145) mmol/L Potassium 3.9 (3.5-5.1) mmol/L Chloride 106 (98-107) mmol/L Carbon Dioxide 29 (21-32) mmol/L Anion Gap 4.0 (3-11) BUN 7 (7-18) mg/dl Creatinine 0.80 (0.6-1.4) mg/dl Est Cr Clr Drug Dosing 100.9 ml/min Est GFR ( Amer) 104.9 Est GFR (Non-Af Amer) 90.5 BUN/Creatinine Ratio 8.5 L (10-20) Glucose 92 (70-99) mg/dl Calcium 8.5 (8.5-10.1) mg/dl 08/12/20 Range/Units 14:02 WBC (4.8-10.8) K/uL RBC (4.7-6.1) M/uL Hgb 8.2 L (14.0-18.0) g/dL Hct 25.2 L (42-52) % MCV (80-100) fL MCH (25-34) pg MCHC (32-36) g/dL RDW Std Deviation (36.4-46.3) fL RDW Coeff of Melvin (11.5-14.5) % Plt Count (130-400) K/uL MPV (7.4-10.4) fL Sodium (136-145) mmol/L Potassium (3.5-5.1) mmol/L Chloride (98-107) mmol/L Carbon Dioxide (21-32) mmol/L Anion Gap (3-11) BUN (7-18) mg/dl Creatinine (0.6-1.4) mg/dl Est Cr Clr Drug Dosing ml/min Est GFR ( Amer) Est GFR (Non-Af Amer) BUN/Creatinine Ratio (10-20) Glucose (70-99) mg/dl Calcium (8.5-10.1) mg/dl Medications Administered Current Inpatient Medications Acetaminophen (Acetaminophen 325 Mg Tab) 650 mg PO Q4H PRN PRN Reason: Pain or Fever Stop: 09/09/20 01:00 Atorvastatin Calcium (Atorvastatin 20 Mg Tab) 20 mg PO QAM [facility] Stop: 09/09/20 08:59 Last Admin: 08/13/20 09:08 Dose: 20 mg Documented by: Cetirizine HCl (Cetirizine Hcl 10 Mg Tablet) 10 mg PO QAM PRN PRN Reason: allergies Stop: 09/09/20 01:00 Folic Acid (Folic Acid 1 Mg Tab) 1 mg PO QAM [facility] Stop: 09/10/20 08:59 Last Admin: 08/13/20 09:10 Dose: 1 mg Documented by: Gabapentin (Gabapentin 600 Mg Tab) 600 mg PO Q24H [facility] Stop: 08/13/20 12:01 Lorazepam (Ativan) 1 mg in 2 mls @ 2 mls/min IV UD PRN; Protocol PRN Reason: EtOH Withdrawl AWSS Score 6,7 Stop: 09/09/20 01:00 Lorazepam (Ativan) 2 mg in 4 mls @ 4 mls/min IV UD PRN; Protocol PRN Reason: EtOH Withdrawl AWSS Score 8,9 Stop: 09/09/20 01:00 Lorazepam (Ativan) 3 mg in 6 mls @ 4 mls/min IV ONCE PRN; Protocol PRN Reason: EtOH Withdrawl AWSS Score >=10 Stop: 09/09/20 01:00 Promethazine HCl 12.5 mg/ (Sodium Chloride) 50.5 mls @ 202 mls/hr IV Q6H PRN PRN Reason: Nausea And Vomiting Stop: 09/09/20 01:00 Sodium Chloride (Nss 1000ml) 1,000 mls @ 60 mls/hr IV .[id number] [facility] Stop: 09/09/20 02:59 Last Infusion: 08/13/20 08:26 Dose: Infused Documented by: Lorazepam (Ativan) 0.5 mg in 1 mls @ 1 mls/min IV Q4H PRN PRN Reason: Anxiety/Agitation Stop: 09/11/20 19:23 Metoprolol Succinate (Metoprolol Succ 25mg Ext Rel Tab) 25 mg PO [facility] Stop: 09/09/20 08:59 Last Admin: 08/13/20 09:08 Dose: 25 mg Documented by: Morphine Sulfate (Morphine Sulfate 2 Mg/Ml Carp) 2 mg IV Q4H PRN PRN Reason: Pain Stop: 08/24/20 01:00 Multivitamins (Multivitamin Tab) 1 tab PO [facility] Stop: 09/10/20 08:59 Last Admin: 08/13/20 09:09 Dose: 1 tab Documented by: Oxycodone HCl (Oxycodone Hcl Ir 5 Mg Tab (Immediate Release)) 5 mg PO Q4H PRN PRN Reason: Pain Stop: 08/24/20 01:00 Pantoprazole Sodium (Pantoprazole 40 Mg Tab) 40 mg PO BID [facility] Stop: 09/12/20 08:59 Last Admin: 08/13/20 09:08 Dose: 40 mg Documented by: Sertraline HCl (Sertraline Hcl 50 Mg Tablet) 25 mg PO [facility] Stop: 09/10/20 10:29 Last Admin: 08/13/20 09:09 Dose: 25 mg Documented by: Thiamine HCl (Thiamine Hcl 100 Mg Tab) [address] [facility] [place] Stop: 09/10/20 08:59 Last Admin: 08/13/20 09:09 Dose: 100 mg Documented by:
[2020-08-13 08:17] LABS: BUN Creatinine Ratio 8.5 (10-20); Calcium 8.5 mg/dl (8.5-10.1); Creatinine Clr Calc Pharmacy 100.9 ml/min; Est GFR (African American) 104.9; Est GFR (Non-African American) 90.5; Potassium 3.9 mmol/L (3.5-5.1)
[2020-08-13] MEDS ORDERED: PANTOprazole 40 MG TAB PO SCH (09:00)
[2020-08-13] MEDS: METOPROLOL SUCC 25MG EXT REL TAB PO SCH (09:08)
[2020-08-13] MEDS: ATORVASTATIN 20 MG TAB PO SCH (09:08)
[2020-08-13] MEDS: SERTRALINE HCL 50 MG TABLET PO SCH (09:09)
--- NOTE | 2020-08-13 10:38 | Gastroenterology Progress Note ---
Date of Service August 13, 2020 Assessment & Plan (1) Gastric ulcer: (2) Acute GI bleeding: Pt is a 69 y/o male admitted w UGI bleed, found to have gastric ulcer which was treated by epi injection and APC via EGD on 08/10. Not having any symptoms to indicate persistent GI bleeding. Blood ct improving - Continue Protonix 40mg BID x 6 weeks then once daily - Repeat EGD in 3 months to check for ulcer healing - Consider Fe supplement x 6-8 weeks - Regular diet restarted - GI to sign off; recall prn Admission and Anticipated Discharge Date Admission Date: August 11, 2020 Supervising Physician Co-Signing Physician Notes I have discussed the patient's management with the advanced practitioner. Please refer to the nurse practitioner's note for the documented findings and plan of care. Subjective Pt denies any more BM since yesterday afternoon. Tolerated solid meals well yesterday w/o abd pain, n/v. Denies issues overnight. Noted blood ct is improving Review of Systems Review of Systems: All systems reviewed & are unremarkable except as noted in HPI & below Physical Exam Constitutional: WD/WN, vitals as above well groomed, cooperative and comfortable Eyes: PERRL, conjunctivae normal, anicteric sclerae ENMT: external ear and nose normal, oropharynx normal Respiratory: normal respiratory effort, lungs clear to auscultation Cardiovascular: RRR, no murmur, no edema Gastrointestinal (Abdomen): normal bowel sounds, soft, nontender, no hepatosplenomegaly Skin: no rashes, warm and dry no jaundice Psychiatric: A+Ox3, euthymic affect Lymphatic: no lymphedema Results & Data ([facility]) Vital Signs (Past 12 Hours) Vital Signs Temp Pulse Pulse Resp BP BP Pulse Ox 08/13/20 07:18 36.7 C 64 18 131/73 96 08/13/20 04:00 36.6 C 68 19 149/84 H 96 08/12/20 23:00 36.5 C 76 18 177/90 H 97
[2020-08-13] MEDS ORDERED: GABAPENTIN 600 MG TAB PO SCH (12:00)
--- NOTE | 2020-08-13 15:39 | Discharge Summary ---
Date of Service August 13, 2020 Admission HPI Per Admitting Provider History obtained from patient, family, and records. Medical history significant for hypertension, hyperlipidemia, anxiety/mood disorder, past tobacco abuse, daily alcohol intake. One day history of diarrhea, dark tarry stools with with some bright red blood. Minimal achy right-sided abdominal pain without emesis. No fever, no chills. No recent NSAID intake. No unusual weight loss. No fever, no chills. Antibiotic/steroid course for ear infection a few months back. Almost daily alcohol intake (3-6 drinks, some days none as per patient account), patient denies abuse. No prior history of alcohol withdrawal. History of dark stools many decades ago related to swallowed blood from the throat as per patient account. Patient brought to ER by . 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 Admission Exam Per Admitting Provider GENERAL: Comfortable, slightly anxious, pleasant, obese, tremulous, no respiratory distress SKIN: Pallor, warm HEENT: Pale palpebral conjunctivae, no ptosis, dry buccal mucosa NECK : Supple, short neck, no tenderness CHEST : CTA, no tenderness HEART : RRR, no obvious murmurs ABDOMEN: Some distention, no overt tenderness EXTREMITIES : No LE swelling/tenderness, no other conspicuous deformities noted NEUROLOGIC : Coherent, no facial asymmetry, tremulous, no other gross focality Principal Diagnosis UGIB 2/2 gastric ulcer, severe gastritis Acute blood loss anemia secondary to above Discharge Exam GENERAL: Elderly obese male sitting up in bed, in no distress HEENT: NC/AT, EOMI,no ptosis NECK : Supple, short neck, no tenderness CHEST : CTAB, no tenderness HEART : RRR, no obvious murmurs ABDOMEN: Some distention, no tenderness to palpation, soft, obese SKIN: warm, dry EXTREMITIES : No LE swelling/tenderness, moves extremities spontaneously NEUROLOGIC : alert and oriented x3, no facial asymmetry, no dysarthria, moves extremities spontaneously Discharge Data Allergies Allergy/AdvReac Type Severity Reaction Status Date / Time amoxicillin AdvReac Severe blisters Unverified 08/09/20 22:49 Consultations 08/09/20 22:43 ED Decision to Admit Stat 08/10/20 01:01 Consult Gastroenterology Routine Procedures Performed Operation Date: 08/10/20 08:25 Actual Procedures p Esophagogastroduodenoscopy(Not Applicable) - Kiko Ibrahim DO Ordered Studies 08/09/20 23:36 CT abd pelvis IV con only Urgent IMPRESSION: 1. No evidence of bowel obstruction. No evidence of free air 2. Left-sided nephrolithiasis. No evidence of hydronephrosis 3. Mild bladder distention. Tiny diverticula arising from the bladder dome 4. Colonic fluid. This is a nonspecific finding which can be seen in diarrhea/enteritis. 5. Borderline gastric wall thickening, finding which may be secondary to a nondistended state Hospital Course (1) UGIB (upper gastrointestinal bleed): UGIB 2/2 gastric ulcer, severe gastritis Acute blood loss anemia secondary to above Some degree of hemodynamic instability with positive orthostatic vitals at the ER. ? Alcoholic gastritis (hx at risk alcohol consumption, possible alcohol abuse, pt denies use of NSAIDs) Medical telemetry IV PPI, cont. for 72 hrs total then PO PPI GI consult RE UGIB Now pt is s/p EGD (08/10) w/ Dr. Ibrahim Findings: Severe gastritis 1 ulcer along the greater curvature of the gastric body, visible vessel seen- This was treated with epinephrine injection and thermal therapy Advance diet Finished Protonix drip (72 hours total) Upon discharge recommend Protonix 40 mg twice daily for 6 weeks then 1 time daily thereafter Repeat upper endoscopy in 3 months Patient should avoid use of nonsteroidals Serial H&H, transfuse PRBC if hemoglobin less than 7 and or for symptomatic anemia H&H 8.7 (08/13/2020), stable AWSS/DT precautions Hypertension, BP at goal now Hyperlipidemia on statin Rx Hyperglycemia rule out DM, current Hgb A1c 5.1% Past tobacco abuse Total Time Total Time Spent Total Time Spent (In Minutes): 40 Total Time Includes: Examination of the Patient, Discharge Planning, Medication Reconciliation and Communication With Other Providers Discharge Plan Discharge Items Patient Disposition: Home - Self-Care Reason For Visit: UGIB Discharge Diagnosis: UGIB 2/2 gastric ulcer, severe gastritis Acute blood loss anemia secondary to above Activity: Per Instructions section Non-emergency contact: Primary 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 [Primary Care Provider] - (Date & Time 08/16/2020 2:40 PM Provider Yariel Rivera MD [facility] ) Diet: Regular Addtl Attending Provider Instructions: Follow-up with primary care provider, the appointment was scheduled for you for August 16. Take Protonix 40 mg twice a day for 6 weeks then daily. Prescription for 1 month was sent to your pharmacy. Please have your primary care doctor or wheel polisher prescribe after that. Avoid medications such as ibuprofen, Motrin, Aleve, these are called NSAIDs. Also minimize your alcohol use. Recommend to avoid caffeinated or very acidic foods. You will also need to follow-up with gastroenterology, it was recommended that you have endoscopy repeated in 3 months. Pending Studies at Discharge: No Stand-Alone Forms: My [facility], Smoking Cessation Medications and DC Order Prescriptions: New pantoprazole 40 mg Tablet,Delayed Release (Dr/Ec) 40 mg PO BID 30 Days Qty: 60 RF: 0 folic acid 1 mg Tablet 1 mg PO QAM 30 Days Qty: 30 RF: 0 thiamine HCl (vitamin B1) [Vitamin B-1] 100 mg Tablet 100 mg PO QAM 30 Days Qty: 30 RF: 0 Continued atorvastatin 20 mg tablet 20 mg PO QAM RF: 0 cetirizine [Zyrtec] 10 mg Tablet 10 mg PO QAM PRN (Reason: allergies) RF: 0 metoprolol succinate 25 mg tablet extended release 24 hr 25 mg PO QAM RF: 0 Discharge Orders: Discharge Order (Routine); Ordered 08/13/20 Ordered By: Freddy Pineda Admission Data Admit Date/Time: 08/11/20 11:16 Attending Provider: Freddy Pineda Admit Provider: Yariel Martinez Primary Care Provider: Yariel Rivera Other Providers: Yariel Martinez ; Jabier Putnam ; Lilian Wise ; Isidra Del Castillo ; Mana Patricio ; Alejo Hoover ; Kiko Ibrahim ; Pepito Carroll ; Danilo Salguero ; Nj Lopez ; Danay Mccracken ; Annie Acosta ; Amalia Anderson ; Mary Beth Colón ; Brandin Valera
== END 2020-08-13 16:29 | disposition home or self-care (01) | DRG 378 ==
LOC: ED 21:15 → 2N 21:15 → SUATTDRO 23:36 → 2N 08-10 00:16